=== PATIENT | female | born 1980 | race Caucasian/White ===

== ENCOUNTER 2016-10-31 11:22 | Emergency (ER) | payer BC, MEDICAID ==
[~2016-10-31] VITALS: Ht 160 cm; Wt 74.8 kg
[~2016-10-31 11:22] MED LIST: FERROUS SULFAT325 M2 PO; MIRALAX(PO17 GM/1 PA PO; PERCOCET1 TAB PO; PROZAC 20MG CAP20 MG PO; VALIUM 5MG TABLE5 MG PO
--- OUTSIDE RECORDS SUMMARY | 2016-10-31 11:54 | External Medical Summary Rpt ---
Author Author , Organization [employer] Address Unknown Phone Unavailable Care Team Providers Care Correspondence Analyst Name Role Phone TAYLOR, TAYLOR Unavailable Unavailable TAYLOR ROSARIO, TAYLOR Unavailable Unavailable [facility] Unavailable Unavailable [facility], [facility] PAMELA CATHY, PAMELA CATHY Unavailable Unavailable KATZ, KATZ Unavailable Unavailable [facility], Unavailable Unavailable [facility] Un[facility]available [facility], [facility] Unavailable Unavailable ANESTHESIA, [facility] CHIPPS MARIO & Unavailable Unavailable DUBILIER, [facility] MARIO [facility] DUBILIER [facility], Unavailable Unavailable [facility] CURE KASSIE, CURE KASSIE Unavailable Unavailable JULIANO, JULIANO Unavailable Unavailable COY PAL, COY PAL Unavailable Unavailable JOB ANDERSON, Unavailable Unavailable BIANKA MCCONNELL, Unavailable Unavailable BIANKA CHEEMA CONTRERAS MAR, CONTRERAS MAR Unavailable Unavailable GOUZD ZULEYMA, GOUZD ZULEYMA Unavailable Unavailable GREEN SORIANO, GREEN SORIANO Unavailable Unavailable GREEN SORIANO, GREEN SORIANO Unavailable Unavailable [facility] Un[facility] Un[facility], [facility] WILHELM GINETTE, CHOCO GINETTE Unavailable Unavailable [facility] Un[facility] Un[facility], [facility] Unavailable Unavailable HOLDINGS, [facility] Unavailable Unavailable [facility]INGS, [facility], Unavailable Unavailable [facility], Unavailable Unavailable [facility] Unavailable Unavailable [facility], [facility] Unavailable Unavailable [facility], [facility] Unavailable [facility],, [facility], RIVERA, RIVERA Unavailable Unavailable LYSANDROU VILMA, Unavailable Unavailable LYSANDROU VILMA LYSANDROU VILMA, Unavailable Unavailable [facility] KENN KOLB I, Unavailable Unavailable KENN KOLB, PAUL Garcia, ADELIA, Unavailable Unavailable PAUL Garcia ALDRIDGE JAM, ALDRIDGE Unavailable Unavailable JAM ALDRIDGE JAM, ALDRIDGE Unavailable Unavailable [facility], Un[facility]available [facility], [facility] Unavailable Unavailable LAB, [facility], Unavailable Unavailable [facility] RENUSCH MONICA, RENUSCH Unavailable Unavailable MONICA BRADY KIERSTEN, Unavailable Unavailable BRADY KIERSTEN [facility], Unavailable Unavailable [facility], Unavailable Unavailable [facility], Unavailable Unavailable [facility] Unavailable Unavailable CLIN, [id number], Unavailable Unavailable [id number] # Unavailable Unavailable [id number], [id number] # [phone] ECKERT CHR, ECKERT Unavailable Unavailable CHR Purpose Continuity of Care Document - 04-07-2009 through 2016 Problems Code Diagnosis DOS Provider Status B373 CANDIDIASIS 09-04-2016 DIANE [facility], L292 PRURITUS 09-04-2016 [facility], L298 OTHER 09-04-2016 LAB LO[facility] PRURITUS [facility] N760 ACUTE 09-04-2016 [facility] VAGINITIS [facility], N898 OTHER 09-04-2016 LAB LOI SPECIFIED [facility] NONINFLAMMA HOLDINGS TORY DISORDERS VAGINA R300 DYSURIA 09-04-2016 [facility], R51 HEADACHE 09-04-2016 [facility], S28032 HORMONE 08-24-2016 [facility] REPLACEMENT [facility], POSTMENOPAU AVI K5641 FECAL 05-26-2016 [facility], [facility] K5900 CONSTIPATIO 05-26-2016 [facility] N PHYSICIANS, UNSPECIFIED [facility] K5903 DRUG 05-26-2016 [facility]ST[facility] N N200 CALCULUS OF 05-26-2016 [facility] N736 FEMALE 04-25-2016 DIANE PELVIC [facility] PERITONEAL [facility], ADHESIONS POSTINFECTI VE N800 ENDOMETRIOS 04-25-2016 DIANE IS OF [facility] UTERUS [facility], N803 ENDOMETRIOS 04-25-2016 DIANE IS OF [facility] PELVIC [facility], PERITONEUM N809 ENDOMETRIOS 04-25-2016 [facility] UNSPECIFIED ANESTHESIA N8301 FOLLICULAR 04-25-2016 [facility] CYST OF MARIO & RIGHT OVARY DUBILIER N8302 FOLLICULAR 04-25-2016 [facility]ST [facility] & LEFT OVARY DUBILIER N946 DYSMENORRHE 04-25-2016 [facility] A [facility] UNSPECIFIED ANESTHESIA N72 INFLAMMATOR 04-23-2016 [facility] Y DISEASE HEALTH OF CERVIX [facility] UTERI N921 EXCESS & 04-23-2016 [facility] FREQUENT HEALTH MENSTRUATIO [facility] N W/IRREGULAR CYCLE N939 ABNORMAL 04-23-2016 [facility] UTERINE & HEALTH VAGINAL [facility] BLEEDING UNSPECIFIED V06630 ENCOUNTER 04-23-2016 [facility] FOR OTHER HEALTH PREPROCEDUR [facility] AL EXAMINATION 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 J111 FLU D/T 04-14-2016 [facility], D FLU VIRUS PLLC W/OTH RESP MANIF N920 EXCESS & 04-03-2016 [facility] FREQUENT [facility] MENSTRUATIO [facility]OC[facility], N W/REGULAR CYCLE N9410 UNSPECIFIED 04-03-2016 [facility] DYSPAREUNIA [facility], R102 PELVIC AND 04-03-2016 [facility] PERINEAL [facility] PAIN [facility], D259 LEIOMYOMA 03-15-2016 [facility]AL OF UTERUS EMERGENCY UNSPECIFIED PHYS PSC R109 UNSPECIFIED 03-15-2016 [facility] ABDOMINAL EMERGENCY PAIN PHYS PSC N8320 UNSPECIFIED 12-17-2015 [facility] R1032 LEFT LOWER 12-17-2015 [facility] E042 NONTOXIC 10-26-2015 [facility] MULTINODULA INC R GOITER E079 DISORDER OF 10-22-2015 THREE THYROID [facility] MED UNSPECIFIED CTR E049 NONTOXIC 10-12-2015 THREE GOITER [facility] MED UNSPECIFIED CTR R110 NAUSEA 09-17-2015 [facility] INC R140 ABDOMINAL 09-17-2015 [facility] DISTENSION INC GASEOUS R079 CHEST PAIN 08-02-2015 THREE UNSPECIFIED [facility] MED CTR 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 D649 ANEMIA 04-17-2015 [facility]PECIFIED [facility] Z720 TOBACCO USE 04-17-2015 [facility] 49971 DYSFUNCTION 02-06-2014 [facility] 4619 ACUTE 02-06-2014 THREE SINUSITIS, [place] UNSPECIFIED MEDICAL CLIN 490 BRONCHITIS 02-06-2014 AZEB HERNANDEZ [facility] SPECIFIED MEDICAL ACUTE OR CLIN CHRONIC 7862 COUGH 02-06-2014 AZEB [facility] 56728 UNSPECIFIED 12-16-2013 [facility] INFECTIVE THO OTITIS EXTERNA 71552 UNSPECIFIED 12-16-2013 ST[facility] OTALGIA THO V3000 SINGLE 07-22-2010 [facility] W/O 650 NORMAL 07-20-2010 ALDRID[facility] JAM DELIVERY V270 OUTCOME OF 07-20-2010 ALDR[facility] JAM DELIVERY SINGLE LIVEBORN 29475 ABNORMAL 07-18-2010 ALDR[facility] JAM MATERNAL GLUCOSE TOLERANCE ANTEPARTUM V221 SUPERVISION 07-04-2010 ALDR[facility] JAM OF OTHER NORMAL V2889 OTHER 07-04-2010 [facility] SCREENING V237 INSUFFICIEN 06-27-2010 [facility] MANDEEP T CARE V7242 06-22-2010 [place] OR TEST H D POSITIVE RESULT V7219 OTHER 06-11-2009 P[facility] EXAMINATION [facility] [place] [facility]SC AND HEARING 48916 UNSPEC 06-10-2009 [facility] TL PROB PLLC AFFECT MGMT MOTH DELIV V502 ROUTINE OR 06-10-2009 [facility] CIRCUMCISIO PLLC N 01759 DECR 06-09-2009 [facility] MGMT MOTH PLLC ANTPRTM COND/COMP 43736 INFECTION 05-19-2009 [facility] DUE OTHER [facility] SPEC HOSP BACTERIA CCE & UNS SITE 38483 OTH SPEC 05-19-2009 [facility] MATERNAL [facility] INF&PARASIT HOSP IC DISEASE ANTPRTM V283 ENCOUNTER 04-21-2009 [facility] SCREEN PLLC MALFORMATIO N ULTRASONIC V745 SCREENING 04-15-2009 PATHOLOGY & EXAMINATION CYTOLOGY FOR LAB VENEREAL DISEASE Medications Na ND Rx Da Fi Fi Am Da Di Ph RX Ph St me C No te ll ll ou ys ag ar # ys at rm s nt no ma ic us Or Da si cy ia de te s n re d CL 00 02 03 30 30 00 VA Ac ON 09 0 -1 .0 00 DONNIE ti AZ 30 8- 0- 00 01 E ve EP 83 20 20 49 ME AM 21 17 17 23 D 0 01 IN 0. C 5 MG TA BL ET FL 63 01 02 60 30 00 VA Ac UO 30 -1 -1 .0 00 DONNIE ti XE 40 0- 0- 00 01 E ve TI 63 20 20 47 ME NE 20 17 17 24 D 1 94 IN HC C L 40 MG CA PS UL E CL 00 01 02 60 30 00 VA Ac ON 09 -1 -1 .0 00 DONNIE ti AZ 30 0- 0- 00 01 E ve EP 83 20 20 48 ME AM 21 17 17 22 D 0 86 IN 0. C 5 MG TA BL ET FL 63 12 01 60 30 00 VA Ac UO 30 -0 -1 .0 00 DONNIE ti XE 40 8- 3- 00 01 E ve TI 63 20 20 47 ME NE 20 16 17 24 D 1 94 IN HC C L 40 MG CA PS UL E CL 00 12 01 60 30 00 VA Ac ON 18 -0 -1 .0 00 DONNIE ti AZ 50 8- 3- 00 01 E ve EP 06 20 20 47 ME AM 41 16 17 24 D 1 0 93 IN C MG TA BL ET 00 01 01 0 20 3 WA 36 ON Ac 59 -2 -2 .0 LG 10 EI ti 10 8 8- 00 RE 69 LL ve 74 20 20 EN 90 11 11 S JA 5 #9 ME 85 S 7 E # 98 57 IB 53 01 01 3 20 5 WA 36 ON Ac UP 74 -2 -2 .0 LG 10 EI ti RO 60 8- 8- 00 RE 70 LL ve FE 46 20 20 EN N 50 11 11 S JA 60 5 #9 ME 0 85 S MG 7 E # TA 98 BL 57 ET 00 12 12 00 30 2 WA 28 BA Ac 60 -1 -3 .0 LG 29 IN ti 35 9- 1- 00 RE 93 ve 46 20 20 EN KI 72 09 09 S MB 8 #0 ER 98 LY 57 W IB 53 12 12 00 30 10 WA 28 BA Ac UP 74 -1 -3 .0 LG 29 IN ti RO 60 9- 1- 00 RE 94 ve FE 46 20 20 EN KI N 60 09 09 S MB 80 5 #0 ER 0 98 LY MG 57 W TA BL ET TA 00 11 11 00 10 5 WA 27 DU Ac FL 00 -0 -1 .0 LG 46 NC ti FL 40 9- 9- 00 RE 24 AN ve U 80 20 20 EN 75 08 09 09 S TH 5 #0 OM MG 98 57 J CA PS UL E Results Labs Lab Lab Date Result Refere Interp Status Commen Order Detail nces retati t Range on CBC W Diff pnl,unspecified Bld (04-26-2016 05:21) WBC --2 11.17 3.50-10 complet nRBC 016 10*3/mm .80 ed cor # 05:21 3 Bld RBC # 11-02-2 3.44 3.89-5. complet Bld 016 10*6/mm 14 ed Auto 05:21 3 Hgb 02-2 10.5 11.5-15 complet Bld-mCn 016 g/dL .5 ed c 05:21 Hct VFr 2 31.6 % 34.5-44 complet Bld 016 .0 ed Auto 05:21 MCV RBC 2 91.9 fL 80.0-99 complet Auto 016 .0 ed 05:21 MCH RBC 2 30.5 pg 27.0-31 complet Qn 016 .0 ed Auto 05:21 MCHC 33.2 32.0-36 complet RBC 016 g/dL .0 ed Auto-mC 05:21 nc RDW RBC 04-26-2 13.3 % 11.3-14 complet 016 .5 ed Auto-Rt 05:21 o RDW RBC 04-26-2 43.7 fl 37.0-54 complet Auto 016 .0 ed 05:21 PMV Bld 2 10.0 fL 6.0-12. complet Auto 016 0 ed 05:21 Platele 211 150-450 complet t # Bld 016 10*3/mm ed Auto 05:21 3 Neutrop 65.8 % 41.0-71 complet hils 016 .0 ed NFr Bld 05:21 Auto Lymphoc 04-26-2 24.2 % 24.0-44 complet ytes 016 .0 ed NFr Bld 05:21 Auto Monocyt 04-26-2 9.0 % 0.0-12. complet es NFr 016 0 ed Bld 05:21 Auto Eosinop 04-26-2 0.6 % 0.0-3.0 complet hil NFr 016 ed Bld 05:21 Auto Basophi 2 0.2 % 0.0-1.0 complet ls NFr 016 ed Bld 05:21 Auto Imm 2 0.2 % 0.0-0.6 complet Granulo 016 ed cytes 05:21 NFr Bld Neutrop 04-26-2 7.35 1.50-8. complet hils # 016 10*3/mm 30 ed Bld 05:21 3 Auto Lymphoc --2 2.70 0.60-4. complet ytes # 016 10*3/mm 80 ed Bld 05:21 3 Auto Monocyt 02-2 1.01 0.00-1. complet es # 016 10*3/mm 00 ed Bld 05:21 3 Auto Eosinop 02-2 0.07 0.10-0. complet hil # 016 10*3/mm 30 ed Bld 05:21 3 Auto Basophi 02-2 0.02 0.00-0. complet ls # 016 10*3/mm 20 ed Bld 05:21 3 Auto Imm 04-26-2 0.02 0.00-0. complet Granulo 016 10*3/mm 03 ed cytes # 05:21 3 Bld Bas Metab 2000 Pnl SerPl (04-26-2016 05:21) Comment: National [employer] Guidelines Comment: Comment: Stage Description GFR Comment: 1 Normal or High 90+ Comment: 2 Mild decrease 60-89 Comment: 3 Moderate decrease 30-59 Comment: 4 Severe decrease 15-29 Comment: 5 Kidney failure <15 Glucose 100 70-100 complet 016 mg/dL ed Bld-mCn 05:21 c Chlorid 103 99-109 complet e 016 mmol/L ed SerPl-s 05:21 Cnc CO2 27.0 20.0-31 complet SerPl-s 016 mmol/L .0 ed Cnc 05:21 Calcium 2 8.5 8.7-10. complet 016 mg/dL 4 ed XXX-sCn 05:21 c GFR/BSA 113 >60 complet .pred 016 mL/min/ ed SerPl 05:21 1.73 MDRD-Ar VRat BUN/Cre 20.0 7.0-25. complet at 016 0 ed SerPl 05:21 Anion 04-26-2 4.0 3.0-11. complet Gap3 016 mmol/L 0 ed SerPl-s 05:21 Cnc BUN 04-26-2 12 9-23 complet Bld-mCn 016 mg/dL ed c 05:21 Creat 04-26-2 0.60 0.60-1. complet Bld-mCn 016 mg/dL 30 ed c 05:21 Sodium 04-26-2 134 132-146 complet Bld-sCn 016 mmol/L ed c 05:21 Potassi 04-26-2 3.8 3.5-5.5 complet um 016 mmol/L ed Bld-sCn 05:21 c CBC (hemogram) Bld Auto (04-23-2016 14:12) RBC # 1030-2 4.56 3.89-5. complet Bld 016 10*6/mm 14 ed Auto 14:12 3 WBC 04-23-2 8.61 3.50-10 complet nRBC 016 10*3/mm .80 ed cor # 14:12 3 Bld Hgb 04-23-2 13.8 11.5-15 complet Bld-mCn 016 g/dL .5 ed c 14:12 Hct VFr 04-23- 40.6 % 34.5-44 complet Bld 016 .0 ed Auto 14:12 MCV RBC 04-23- 89.0 fL 80.0-99 complet Auto 016 .0 ed 14:12 MCH RBC 04-23-2 30.3 pg 27.0-31 complet Qn 016 .0 ed Auto 14:12 MCHC 04-23-2 34.0 32.0-36 complet RBC 016 g/dL .0 ed Auto-mC 14:12 nc RDW RBC 04-23-2 13.1 % 11.3-14 complet 016 .5 ed Auto-Rt 14:12 o RDW RBC 04-23-2 41.9 fl 37.0-54 complet Auto 016 .0 ed 14:12 PMV Bld 04-23-2 10.0 fL 6.0-12. complet Auto 016 0 ed 14:12 Platele 04-23-2 299 150-450 complet t # Bld 016 10*3/mm ed Auto 14:12 3 [facility] (04-23-2016 14:12) Comment: HCG Expected Values: Comment: Comment: Non females: ? less than 5 mIU/mL Comment: Comment: Males: ? less than 5 mIU/mL Comment: Comment: females: Comment: 0-1 Weeks Gestation ?5-50 Comment: 1-2 Weeks Gestation ?50-500 Comment: 2-3 Weeks Gestation ?100-5000 Comment: 3-4 Weeks Gestation ?[phone] Comment: 4-5 Weeks Gestation ?[phone] Comment: 5-6 Weeks Gestation ?[phone] Comment: 6-8 Weeks Gestation ?[phone] Comment: 2-3 Months Gestation ? [phone] Comment: Comment: ? Note: ?If a value is between 5-25 mIU/mL recommend Comment: repeat testing and clinical correlation. HGC 10-30-2 < 5.00 complet Intact+ 016 mIU/mL ed B 14:12 SerPl-a Cnc Procedures Procedure DOS [place] [id number] LAB LOI LAB LOI NON-IMMUN 7 [facility] OLOGIC HOLDINGS HOLDINGS OTH/THN CYTOPATHI C IADNA 71504 LAB LOI LAB LOI KENTON 7 [facility] SPECIES HOLDINGS HOLDINGS AMPLIFIED PROBE TQ CULTURE 87874 LAB LOI LAB LOI BACTERIAL 7 [facility] HOLDINGS QUANTTATI VE COLONY COUNT URINE SMR PRIM 27767 DIANE TAYLOR SRC WET 7 [facility] M[facility] ASSOCIATE NFCT AGT S, IADNA NOS 95023 LAB LOI LAB LOI 7 [facility] AMPLIFIED HOLDINGS HOLDINGS PROBE TQ EACH ORGANISM URNLS DIP 06902 DIANE SRKINS 7 [facility] STICK/TAB ASSOCIATE LET S, REAGENT AUTO MICROSCOP Y THER 65304 [facility] PROPH/DX 6 [facility] NJX EA INC INC SEQL IV PUSH SBST/DRUG FAC THERAPEUT 96155 [facility] IC 6 [facility] INJECTION INC INC IV PUSH EACH NEW DRUG THER 24730 [facility] PROPH/DX 6 [facility] NJX IV INC INC PUSH SINGLE/1S T SBST/DRUG RADEX 24893 [facility] ABDOMEN 6 MEDICAL COMPL IMAGING W/DCBTS&/ ASS ERC VIEWS INJECTION J1644 [facility] HEPARIN 6 [facility] SODIUM [facility] PER 1000 UNITS INJECTION J1170 [facility] MUSLIM 6 [facility] HYDROMORP [facility] CESAR UP TO 4 MG INJECTION J0694 [facility] MUSLIM 6 [facility] CEFOXITIN [facility] SODIUM 1 G BASIC 46424 [facility] METABOLIC 6 [facility] PANEL [facility] CALCIUM TOTAL BLOOD 85588 [facility] COUNT 6 [facility] COMPLETE [facility] AUTO&AUTO DIFRNTL WBC INJECTION J2250 [facility] [address] [place] [address] MIDAZOLAM [facility] HCL PER 1 [facility] G0378 [facility] OBSERVATI 6 [facility] ON [facility] SERVICE PER HOUR INJECTION J2550 [facility]LIM 6 [facility] PROMETHAZ [facility] INE HCL UP TO 50 MG INJECTION J2405 [facility] MUSLIM 6 [facility] ONDANSETR [facility] ON HCL PER 1 [place] [address] CHIPPS JULIANO SURG 6 MARIO & PATHOLOGY TANMAY [facility] ROSCOPIC EXAM ANESTHESI 10990 [facility] GOUZD ZULEYMA A 6 [facility] INTRAPERI ANESTHESI TONEAL A LOWER ABD W/LAPS NOS LAPS 94956 TROY TAYLOR TOTAL 6 [facility] ROSARIO HYSTERECT ASSOCIATE 250 GM/< S, W/RMVL TUBE/OVAR Y INJECTION J0694 [facility] [address] [place] [address] CEFOXITIN [facility] SODIUM 1 G INJECTION J3010 [facility] FENTANYL 6 [facility] CITRATE [facility] 0.1 MG INJECTION J2710 [facility] [address] [place] [address] NEOSTIGMI [facility] NE METHYLSUL FATE UP TO 0.5 MG INJECTION J2704 [facility] PROPOFOL 6 [facility]1170 [facility] MUSLIM 6 [facility] HYDROMORP [facility] CESAR UP TO 4 MG INJECTION J1100 [facility] MUSLIM 6 [facility] DEXAMETHO [facility] SONE SODIUM PHOSPHATE 1 MG ANTIBODY 82958 [facility] ID RBC 6 [facility] ANTIBODIE [facility] S EA PANEL EA SERUM TQ GONADOTRO 12516 [facility] PIN 6 [facility] CHORIONIC [facility] QUANTITAT BORA COMPATIBI 56856 [facility] LITY EACH 6 [facility] UNIT [facility] ANTIGLOBU BILL COMPATIBI 00858 [facility] LITY EACH 6 [facility] UNIT [facility] IMMEDIATE SPIN TECHNIQUE BLOOD 01605 [facility] COUNT 6 [facility] COMPLETE [facility] AUTOMATED BLOOD 39567 [facility] TYPING 6 [facility] SEROLOGIC [facility] RH (D) ANTIBODY 58954 [facility] SCREEN 6 [facility] RBC EACH [facility] SERUM TECHNIQUE COLLECTIO 80927 [facility] N VENOUS 6 [facility]ALTH HEALTH BLOOD [facility] VENIPUNCT URE BLOOD 26518 [facility] TYPING 6 [facility] SEROLOGIC [facility] ABO COMPREHEN 86993 [facility] SIVE [facility] METABOLIC [facility] PANEL BLOOD 38915 [facility] COUNT 6 [facility] COMPLETE [facility] AUTO&AUTO DIFRNTL WBC URNLS DIP 79735 [facility] MUSLIM 6 [facility] HE[facility] STICK/TAB [facility] LET REAGENT AUTO MICROSCOP Y US PELVIC 69614 [facility] CONTRERAS MAR 6 RADIOLOGY NONOBSTET ASSOC VIJAY REAL-TIME IMAGE COMPLETE INJECTION J1885 [facility] MUSLIM 6 [facility] KETOROLAC [facility] TROMETHAM INE PER 15 MG URINE 74208 [facility] MUSLIM 6 [facility] TEST [facility] [place] [address] [facility] LIPASE 6 [facility] THER 75219 MUSLIM [facility] PROPH/DX 6 [facility] NJX IV [facility] PUSH SINGLE/1S T SBST/[place] [address] [facility] CONTRERAS MAR TRANSVAGI [address] [place] [address] [facility] ABDOMEN & 6 [facility] PELVIS INC INC W/O CONTRAST MATERIAL THERAPEUT 75943 [facility] IC 6 [facility] INJECTION INC INC IV PUSH EACH NEW DRUG BLOOD 03573 [facility] COUNT 6 [facility] COMPLETE INC INC AUTO&AUTO DIFRNTL WBC URNLS DIP 64227 [facility]GG 6 [facility] STICK/TAB INC [place] [address] [facility] INFUSION 6 [facility] THERAPY/P INC INC ROPHYLAXI S /DX 1ST TO 1 HR UNCLASSIF J3490 [facility] IED DRUGS 6 [facility] INC INC COMPREHEN 17922 [facility] SIVE 6 [facility] METABOLIC INC INC PANEL INJECTION J2405 VALDEZPEDRO PABLO KELLOGG 6 [facility]OS[facility] ONDANSETR INC INC ON HCL PER 1 MG US PELVIC 21027 RADIOLOGY DRANSFELD 6 INC [facility] NONOBSTET VIJAY REAL-TIME IMAGE COMPLETE US SOFT 51599 RADIOLOGY DRANSFELD TISSUE 6 INC [facility]ICA HEAD & NECK REAL TIME IMGE DOCM THYROID 00113 THREE THREE STIMULATI 6 MA MA NG IMMUNE MED CTR MED CTR GLOBULINS TSI MICROSOMA 60136 THREE THREE L 6 ANTIBODIE MED CTR MED CTR S EACH BLOOD 15978 THREE THREE COUNT [address] [place] [address] THREE THREE TRIIODOTH 6 MA MA YRONINE [place] [address] THREE THREE THYROID 6 STIMULATI [place] [address] THREE THREE FREE 6 [facility] MA THYROXINE MED CTR MED CTR ANES 29166 THREE ECKERT HYSTEROSC 6 [facility] CHR OPY&/HYST MEDICAL EROSALPIN CLIN GOGRAPHY W/BX INJECTION J2405 THREE THREE 6 [facility] ONDANSETR MED CTR MED CTR ON HCL PER 1 MG INJECTION J3010 THREE THREE FENTANYL 6 [facility] CITRATE MED CTR MED CTR 0.1 MG INJECTION J2704 THREE THREE PROPOFOL 6 [facility] MA 10 MG MED CTR MED CTR INFUSION J7030 THREE THREE NORMAL 6 [facility] SALINE MED CTR MED CTR SOLUTION 1000 CC UNCLASSIF J3490 THREE THREE IED DRUGS 6 [facility] MA MED CTR MED CTR INJECTION J2250 THREE THREE 6 [facility] MA MIDAZOLAM MED CTR MED CTR HCL PER 1 MG GONADOTRO 40681 THREE THREE PIN 6 [facility] CHORIONIC MED CTR MED CTR QUALITATI VE HYSTEROSC 42543 THREE COY PAL OPY 6 [facility] ENDOMETRI MEDICAL AL CLIN ABLATION PERM IMPL A4264 THREE THREE 6 MA [facility] CONTRACEP MED CTR MED CTR TIVE TUBAL OCCL DEV & DEL SYS RINGERS J7120 THREE THREE LACTATE 6 [facility] INFUSION MED CTR MED CTR UP TO 1000 CC RADEX 62477 THREE THREE ABDOMEN 1 6 [facility] MED [place] [address] [facility]OLOGY [facility] ABDOMEN & 6 INC PELVIS W/[place] [address] [facility], [address] PATHOLOGY [facility] ROSCOPIC EXAM ENDOMETRI 90744 THREE COY PAL AL BX 6 MA W/WO MEDICAL ENDOCERVI CLIN X BX W/[place] [address] THREE THREE TROPONIN 6 [facility] QUANTITAT MED CTR MED CTR BORA BLOOD 90286 THREE THREE COUNT 6 [facility] COMPLETE [place] [address] THREE THREE MAGNESIUM 6 [facility] MED CTR MED CTR CREATINE 27878 THREE THREE KINASE 6 [facility] TOTAL MED CTR MED CTR SEDIMENTA 77342 THREE THREE TION RATE 6 [facility] RBC MED CTR MED CTR NON-AUTOM ATED CREATINE 10826 THREE THREE KINASE MB 6 MA MA FRACTION MED CTR MED CTR ONLY COMPREHEN 55933 THREE THREE SIVE 6 [place] METABOLIC MED CTR MED CTR PANEL C-REACTIV 52266 THREE COMPLIANC E PROTEIN 6 MA E MED CTR ADVANTAGE OPHTH 97888 LYSANDROU LYSANDROU MEDICAL 6 VILMA VILMA XM&EVAL COMPRE NEW PT 1/> VST US SOFT 54116 RADIOLOGY CURE KASSIE TISSUE 5 INC HEAD & NECK REAL TIME IMGE DOCM THYROGLOB 42360 THREE THREE ULIN 5 MA [place] [address] THREE THREE TRIIODOTH 5 [facility] YRONINE MED [place] [address] THREE THREE THYROID 5 [facility] STIMULATI MED [place] [address] THREE THREE FREE 5 [facility] THYROXINE MED CTR MED CTR LOCM Q9967 CENTRAL CENTRAL [phone] 5 MUSLIM MUSLIM MG/ML HOSP HOSP IODINE CONCENTRA TION PER ML INJECTION J2405 CENTRAL CENTRAL 5 [facility] MUSLIM ONDANSETR HOSP HOSP [place] [address] [place] [address] CENTRAL CENTRAL ANGIOGRAP 5 [facility]LIM HY CHEST [facility]OSP HOSP W/[place] [address] CENTRAL CENTRAL AMYLASE 5 [facility]LIM MUSLIM HOSP HOSP COMPREHEN 36092 CENTRAL CENTRAL SIVE 5 [facility]LIM [facility] METABOLIC HOSP HOSP PANEL BLOOD 54556 CENTRAL CENTRAL COUNT 5 MUSLIM MUSLIM COMPLETE HOSP HOSP AUTO&[place] [address] CENTRAL CENTRAL TROPONIN 5 MUSLIM MUSLIM QUANTITAT HOSP HOSP BORA NATRIURET 01241 CENTRAL CENTRAL IC 5 MUSLIM MUSLIM PEPTIDE HOSP HOSP THERAPEUT 01615 CENTRAL CENTRAL IC 5 MUSLIM MUSLIM INJECTION HOSP HOSP IV PUSH EACH NEW DRUG RADIOLOGI 82651 CENTRAL CENTRAL C 5 MUSLIM MUSLIM EXAMINATI HOSP HOSP ON CHEST SINGLE VIEW FRONTAL THROMBOPL 29751 CENTRAL CENTRAL ASTIN 5 MUSLIM MUSLIM TIME HOSP HOSP PARTIAL PLASMA/WH OLE BLOOD URINE 89826 CENTRAL CENTRAL 5 [facility]LIM MUSLIM TEST HOSP HOSP VISUAL COLOR CMPRSN METHS ECG 77016 CENTRAL CENTRAL ROUTINE 5 MUSLIM MUSLIM ECG HOSP HOSP W/LEAST 12 LDS TRCG ONLY W/O I&R INJECTION J1170 CENTRAL CENTRAL 5 MUSLIM MUSLIM HYDROMORP HOSP HOSP CESAR UP TO 4 MG PROTHROMB 43872 [facility] IN TIME 5 [facility] FIBRIN 58854 [facility] DGRADJ 5 [facility] PRODUCTS [facility]OSP HOSP [place] [address] CEN[facility] LIPASE 5 [facility]P THER 90944 [facility] PROPH/DX 5 [facility] NJX IV HOSP HOSP PUSH SINGLE/1S T SBST/DRUG INJECTION J1100 [facility] 4 [facility] DEXAMETHO MEDICAL SONE CLIN SODIUM PHOSPHATE 1 MG THERAPEUT 82145 [facility]/DX CLIN INJECTION SUBQ/IM INJECTION J2010 THREE STICKLER 4 [facility] LINCOMYCI MEDICAL N HCL UP CLIN TO 300 [facility] 66762 GREEN SORIAN[facility] GREEN [facility]IAN[facility] DISCHARGE 1 DAY MANAGEMEN T 30 MIN/< 1ST 09154 GREEN SORIANO GREEN [facility]ORIAN[facility] HOSP/LEXY 1 [facility] CARE PER DAY NML NB VAGINAL 91125 ALDRIDGE ALDRIDGE DELIVERY 1 JAM JAM ONLY W/POSTPAR CONCETTA CARE CUL 89547 [facility] PRSMPTV 1 [employer] (PICA) [facility] PTHGNC ORGANISM SCRN W/COLONY ESTIMJ IADNA 62221 [facility] CHLAMYDIA 1 [place] [employer] [facility] TRACHOMAT IS AMPLIFIED PROBE TQ IADNA 80589 [facility] [place]AP[place] 1 [facility] VIRUS HUMAN AMPLIFIED PROBE TQ CYTP C/V 28710 [facility] OF AUTO THIN 1 [place] [facility] [place] [facility] LYR PREPJ SCR MNL RESCR PHYS US PREG 58455 ALDRIDGE ALDRIDGE UTERUS 1 JAM JAM AFTER 1ST TRIMEST GESTATION IADNA 92351 [facility] NEISSERIA 1 [place] INC GONORRHOE AE AMPLIFIED PROBE TQ URINE 87215 [facility] 0 [place] TEST CO H D CO H D VISUAL COLOR CMPRSN METHS AUDITORY 78191 PEDIATRIX ADELIA, EVOKED 9 MEDICAL PAUL G POTENTIAL [facility] [place] S LIMITED PSC CIRCUMCIS 12276 WOMENLexie CHEEMA ION 9 [facility] W/CLAMP/O CENTER TH DEV PLLC W/BLOCK VAGINAL 71319 WOMENLexie CHEEMA, DELIVERY 9 [facility]ARE [facility] ONLY CENTER W/POSTPAR PLLC CONCETTA CARE 43342 WOMENLexie CHEEMA, NONSTRESS 9 [facility] TEST CENTER PLLC 88778 MIREYA CORTES BIOPHYSIC 9 CARE [facility] I AL CENTER PROFILE PLLC NON-STRES S TESTING CUL 64423 CENTRAL CENTRAL PRSMPTV 9 [facility] PTHGNC HOSP HOSP ORGANISM SCRN W/COLONY ESTIMJ US PREG 08136 MIREYA KOLB, UTERUS 9 CARE [facility] I AFTER 1ST CENTER TRIMEST PLLC GESTATION 3D 91389 MIREYA KOLB, RENDERING 9 CARE [facility] I CENTER W/INTERP& PLLC POSTPROC DIFF WORK STATION IADNA 77880 PATHOLOGY PATHOLOGY NEISSERIA 9 & & CYTOLOGY CYTOLOGY GONORRHOE LAB LAB AE AMPLIFIED PROBE TQ IADNA 60983 PATHOLOGY PATHOLOGY CHLAMYDIA 9 & & CYTOLOGY CYTOLOGY TRACHOMAT LAB LAB IS AMPLIFIED PROBE TQ CYTP C/V 19487 PATHOLOGY PATHOLOGY AUTO THIN 9 & & LYR CYTOLOGY CYTOLOGY PREPJ SCR LAB LAB MNL RESCR PHYS URINE 68473 DHS/CO TROY 9 [facility] [place] TEST CENTRAL CO H D VISUAL BANK ACCT COLOR CMPRSN METHS Encounters Encounter Start End Date Code Location Performer Type Date OFFICE 47866 [place] [facility] OUTPATIEN 7 7 FUND RAISER T VISIT ASSOCIATE 15 S, MINUTES OFFICE 91523 DIANE SRKINS OUTPATIEN 7 7 FUND RAISER T VISIT ASSOCIATE 15 S, MINUTES EMERGENCY 42158 [facility] 6 [address] [facility] T VISIT HIGH/URGE NT SEVERITY [facility]OSPITAL [facility] - 6 6 [facility] EMERGENCY 81140 [facility] 6 6 PHYSICIAN [place] VISIT [facility] HIGH [facility]VERITY& THREAT [facility] - 6 6 [facility] - 6 6 [facility] EMERGENCY 89490 EVELINA WIL[facility]LM [facility] 6 6 PHYSICIAN DEPART[facility] VISIT MODERATE SEVERITY EMERGENCY 45081 [facility] 6 6 [facility] VISIT LIMITED/M INOR PROB OFFICE 13627 [facility] FUND RAISER ROSARIO T NEW 45 ASSOCIATE MINUTES S, HOSPITAL [facility] - 6 6 [facility] EM[facility]GENC[facility] 22034 [facility] 6 6 [facility] VISIT HIGH/URGE NT SEVERITY EMERGENCY 22100 [facility] DEPT 6 6 EMERGENCY [facility] VISIT PHYS PSC HIGH SEVERITY& THREAT FUNJ EMERGENCY 67444 [facility] 6 6 [facility] VISIT HIGH/URGE NT SEVERITY [facility]OSPITAL [facility] - 6 6 [facility] - OTHER 6 6 [facility] THREE - OTHER 6 6 [facility] THREE - 6 6 [facility] THREE - 6 6 [place] OUTPATIEN [facility] T OFFICE 05603 THREE [place] OUTPATIEN 6 6 MA T NEW 45 MEDICAL MINUTES CLIN HOSPITAL THREE - OTHER 6 6 [facility] THREE - 5 5 [facility] THREE - OTHER 5 5 [facility] CENTRAL - 5 5 [facility] OUTPATIEN HOSP T EMERGENCY 24674 [facility] 5 5 [facility] HIGH/URGE NT SEVERITY OFFICE 18855 THREE STICKLER OUTPATIEN 4 4 MA THO T VISIT MEDICAL 25 CLIN MINUTES OFFICE 93381 STICKLER STICKLER OUTPATIEN 4 4 THO THO T NEW 30 MINUTES OFFICE 80601 ALDRIDGE ALDRIDGE OUTPATIEN 1 1 JAM JAM T VISIT 15 MINUTES OFFICE 74569 ALDR[facility] ALDRIDGE OUTPATIEN 1 1 JAM JAM T VISIT 15 MINUTES OFFICE 96362 AL[facility] ALDRIDGE OUTPATIEN 1 1 JAM JAM T VISIT 15 MINUTES OFFICE 24388 ALDR[facility]GE ALDRIDGE OUTPATIEN 1 1 JAM JAM T NEW 45 MINUTES OFFICE 61488 [facility] OUTPATIEN 0 0 YAIR MAZARIEGOS T VISIT CO H D CO H D 25 MINUTES OFFICE 04437 CAROLEE ECHEVERRIA 9 9 [facility] T VISIT CENTER 15 PLLC MINUTES OFFICE 33542 CAROLEE ECHEVERIRA 9 9 [facility] V[facility] CENTER 15 PLLC MINUTES OFFICE 89772 CAROLEE ECHEVERRIA 9 9 [facility] T VISIT CENTER 15 PLLC MINUTES [facility] CENTRAL - 9 9 [facility] OUTPATIEN HOSP T OFFICE 70059 MIREYA CAROLEE CHEEMA 9 9 [facility] [place] [facility] 15 [facility] MINUTES OFFICE 04759 MIREYA CHEEMACAROLEE 9 9 [facility] [place] [facility] 15 PLL MINUT[facility] CENTRAL - 9 9 [facility] OFF[facility] 68602 MIREYA CHEEMACAROLEE 9 9 CARE [facility] Eddy NEW 45 CENTER MINUTES [facility] OFFICE 11036 [facility] 9 [facility]ALTH Y[facility]IR [place] [facility] 45 CENTRAL CO H D MINUT[facility]
--- OUTSIDE RECORDS SUMMARY | 2016-10-31 11:54 | External Medical Summary Rpt ---
Author Author , Organization [employer] Address Unknown Phone Unavailable Care Team Providers Care Custom Stock Maker Name Role Phone TAYLOR, TAYLOR Unavailable Unavailable TAYLOR ROSARIO, TAYLOR Unavailable Unavailable [facility] Unavailable Unavailable [facility], [facility] PAMELA CATHY, PAMELA CATHY Unavailable Unavailable KATZ, KATZ Unavailable Unavailable [facility], Unavailable Unavailable [facility] Unavailable Unavailable PH[facility], [facility] Unavailable Unavailable ANESTHESIA, [facility] [place] [facility] CHIPPS MARIO & Unavailable Unavailable DUBILIER, CHIPPS MAROI & DUBILIER COMPLIANCE [employer], Unavailable Unavailable COMPLIANCE [...] INC WILHELM GINETTE, CHOCO GINETTE Unavailable Unavailable [facility] Unavailable Unavailable IM[facility]ING [facility], [facility] LAB LOI GHADA Unavailable [...] D, [place] [facility] [place] [facility]UMAN RESOURCES COMPLIANCE MANAGER Unavailable Unavailable ASSOCIATES,, [facility] HUMAN RES[facility] COMPLIANCE MANA[facility], RIVERA, RIVERA Unavailable Unavailable LYSANDROU VILMA, [...] STICKLER THO, Unavailable Unavailable [facility], Unavailable Unavailable [facility] Unavailable Unavailable [facility], [id number], Unavailable Unavailable [id number] # Unavailable Unavailable 9857, [id number] # [phone] ECKERT CHR, ECKERT Unavailable Unavailable CHR Purpose Continuity of Care Document - 04-07-2009 through 2016 Problems Code Diagnosis DOS Provider Status B373 CANDIDIASIS 09-04-2016 DIANE OF [facility] HUMAN RESOURCES COMPLIANCE MANAGER AND VAGINA ASSOCIATES, L292 PRURITUS 09-04-2016 [facility] VULVAE HUMAN RESOURCES COMPLIANCE MANAGER [facility]OCIATES, L298 OTHER 09-04-2016 LAB LOI PRURITUS GHADA HOLDINGS N760 ACUTE 09-04-2016 [facility] VAGINITIS HUMAN RESOURCES COMPLIANCE MANAGER ASSOCIATES, N898 OTHER 09-04-2016 LAB LOI SPECIFIED GHADA NONINFLAMMA HOLDINGS TORY DISORDERS VAGINA R300 DYSURIA 09-04-2016 [facility] HUMAN RESOURCES COMPLIANCE MANAGER [facility], R51 HEADACHE 09-04-2016 [facility] HUMAN RESOURCES COMPLIANCE MANAGER [facility]OC[facility], [id number] HORMONE 08-24-2016 [facility] REPLACEMENT HUMAN RESOURCES COMPLIANCE MANAGER THERAPY ASSOCIATES, POSTMENOPAU AVI K5641 FECAL 05-26-2016 EVELINA IMPACTION PHYSICIANS, [facility] K5900 CONSTIPATIO 05-26-2016 EVELINA N PHYSICIANS, UNSPECIFIED [facility] K5903 DRUG 05-26-2016 VAL[facility]Z INDUCED [facility] CONSTIPATIO INC N N200 CALCULUS OF 05-26-2016 [facility] N736 FEMALE 04-25-2016 DIANE PELVIC HUMAN RESOURCES COMPLIANCE MANAGER PERITONEAL ASSOCIATES, ADHESIONS POSTINFECTI VE N800 ENDOMETRIOS 04-25-2016 DIANE IS OF HUMAN RESOURCES COMPLIANCE MANAGER UTERUS ASSOCIATES, N803 ENDOMETRIOS 04-25-2016 DIANE IS OF HUMAN RESOURCES COMPLIANCE MANAGER PELVIC ASSOCIATES, PERITONEUM N809 ENDOMETRIOS 04-25-2016 [facility] IS [place] UNSPECIFIED ANESTHESIA N8301 FOLLICULAR 04-25-2016 CHIPPS CYST OF MARIO & RIGHT OVARY DUBILIER N8302 FOLLICULAR 04-25-2016 CHIPPS CYST OF MARIO & LEFT OVARY DUBILIER N946 DYSMENORRHE 04-25-2016 [facility] A [place] UNSPECIFIED ANESTHESIA N72 INFLAMMATOR 04-23-2016 [facility] Y DISEASE HEALTH OF CERVIX [place] UTERI N921 EXCESS & 04-23-2016 [facility] FREQUENT HEALTH MENSTRUATIO [facility] N W/IRREGULAR CYCLE N939 ABNORMAL 04-23-2016 [facility] UTERINE & HEALTH VAGINAL [place] BLEEDING UNSPECIFIED [id number] ENCOUNTER 04-23-2016 [facility] FOR OTHER HEALTH PREPROCEDUR [place] AL EXAMINATION N60330 PERSONAL 04-23-2016 [facility] HISTORY OF HEALTH NICOTINE [facility] DEPENDENCE J111 FLU D/T 04-14-2016 [facility] PHYS[facility], D FLU VIRUS PLLC W/OTH RESP MANIF N920 EXCESS & 04-03-2016 [facility] FREQUENT HUMAN RESOURCES COMPLIANCE MANAGER MENSTRUATIO ASSOCIATES, N W/REGULAR CYCLE N9410 UNSPECIFIED 04-03-2016 [facility] HUMAN RESOURCES COMPLIANCE MANAGER DYSPAREUNIA ASSOCIATES, R102 PELVIC AND 04-03-2016 [facility] PERINEAL HUMAN RESOURCES COMPLIANCE MANAGER PAIN ASSOCIATES, D259 LEIOMYOMA 03-15-2016 CENTRAL OF [facility]TERUS EMERGENCY UNSPECIFIED PHYS PSC R109 UNSPECIFIED 03-15-2016 CEN[facility]AL ABDOMINAL EMERGENCY PAIN PHYS PSC N8320 UNSPECIFIED 12-17-2015 [facility] CY[facility] R1032 LEFT LOWER 12-17-2015 [facility] E042 NONTOXIC 10-26-2015 RADIOLOGY MULTINODULA INC R GOITER E079 DISORDER OF 10-22-2015 THREE THYROID [facility] MED UNSPECIFIED CTR E049 NONTOXIC 10-12-2015 THREE GOITER [place] MED UNSPECIFIED CTR R110 NAUSEA 09-17-2015 RADIOLOGY INC R140 ABDOMINAL 09-17-2015 RADIOLOGY DISTENSION INC GASEOUS R079 CHEST PAIN 08-02-2015 THREE UNSPECIFIED MA MED CTR 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 D649 ANEMIA 04-17-2015 CENTRAL UNSPECIFIED [facility] Z720 TOBACCO USE 04-17-2015 [facility]AL [facility] 11178 DYSFUNCTION 02-06-2014 THREE OF [facility] 4619 ACUTE 02-06-2014 THREE SINUSITIS, [place] UNSPECIFIED MEDICAL CLIN 490 BRONCHITIS 02-06-2014 AZEB HERNANDEZ MA SPECIFIED MEDICAL ACUTE OR CLIN CHRONIC 7862 COUGH 02-06-2014 [facility]ZE[facility] 95435 UNSPECIFIED 12-16-2013 ST[facility] INFECTIVE THO OTITIS EXTERNA 37000 UNSPECIFIED 12-16-2013 STICKLER OTALGIA THO V3000 SINGLE 07-22-2010 [facility] W/O 650 NORMAL 07-20-2010 ALDRIDGE JAM DELIVERY V270 OUTCOME OF 07-20-2010 ALDR[facility]GE JAM DELIVERY SINGLE LIVEBORN 59426 ABNORMAL 07-18-2010 AL[facility] JAM MATERNAL GLUCOSE TOLERANCE ANTEPARTUM V221 SUPERVISION 07-04-2010 ALDR[facility]GE JAM OF OTHER NORMAL V2889 OTHER 07-04-2010 LABONE OF SPECIFIED [place] INC SCREENING V237 INSUFFICIEN 06-27-2010 ALDR[facility]GE MANDEEP T CARE V7242 06-22-2010 [place] EXAMINATION [place] OR TEST H D POSITIVE RESULT V7219 OTHER 06-11-2009 P[facility]X EXAMINATION MED[facility] GR[facility] [place] PSC AND HEARING 07652 UNSPEC 06-10-2009 [facility] TL PROB PLLC AFFECT MGMT MOTH DELIV V502 ROUTINE OR 06-10-2009 [facility] CIRCUMCISIO PLLC N 49480 DECR 06-09-2009 [facility] MGMT MOTH PLLC ANTPRTM COND/COMP 91078 INFECTION 05-19-2009 [facility]AL DUE OTHER [facility] SPEC HOSP BACTERIA CCE & UNS SITE OTH SPEC 05-19-2009 C[facility]TRAL MATERNAL [facility] INF&PARASIT HOSP IC DISEASE ANTPRTM V283 ENCOUNTER [...] 00 10 5 WA 27 DU Ac NC 00 -0 -1 .0 LG 46 NC [...] 016 10*3/mm ed Auto 14:12 3 B-HCG [facility] (04-23-2016 14:12) Comment: HCG Expected Values: Comment: Comment: Non females: ? less than 5 mIU/mL Comment: Comment: Males: ? less than 5 mIU/mL Comment: Comment: females: Comment: 0-1 Weeks Gestation ?5-50 Comment: 1-2 Weeks Gestation ?50-500 Comment: 2-3 Weeks Gestation ?100-5000 Comment: 3-4 Weeks Gestation ?[phone] Comment: 4-5 Weeks Gestation ?[phone] Comment: 5-6 Weeks Gestation ?[phone] Comment: 6-8 Weeks Gestation ?[phone] Comment: 2-3 Months Gestation ? [phone] Comment: Comment: ? Note: ?If a value is between 5-25 mIU/mL recommend Comment: repeat testing and clinical correlation. HGC 10-30-2 < 5.00 complet Intact+ 016 mIU/mL ed B 14:12 SerPl-a Cnc Procedures Procedure DOS [place] [id number] LAB LOI LAB LOI NON-IMMUN 7 GHADA GHADA OLOGIC HOLDINGS HOLDINGS OTH/THN CYTOPATHI C IADNA 35454 LAB LOI LAB LOI KENTON 7 GHADA GHADA SPECIES HOLDINGS HOLDINGS AMPLIFIED PROBE TQ CULTURE 04201 LAB LOI LAB LOI BACTERIAL 7 GHADA GHADA HOLDINGS HOLDINGS QUANTTATI VE COLONY COUNT URINE SMR PRIM 71987 DIANE TAYLOR SRC WET 7 HUMAN RESOURCES COMPLIANCE MANAGER MOUNT ASSOCIATE NFCT AGT S, IADNA NOS 42636 LAB LOI LAB LOI 7 GHADA GHADA AMPLIFIED HOLDINGS HOLDINGS PROBE TQ EACH ORGANISM URNLS DIP 69254 DIANE SRKINS 7 HUMAN RESOURCES COMPLIANCE MANAGER STICK/TAB ASSOCIATE LET S, REAGENT AUTO MICROSCOP Y THER 06261 VAL[facility]Z KELLOGG PROPH/DX 6 [facility] NJX EA INC INC SEQL IV PUSH SBST/DRUG FAC THERAPEUT 57266 VALDEZ KELLOGG IC 6 [facility] INJECTION INC INC IV PUSH EACH NEW DRUG THER 19424 VALDEZ KELLOGG PROPH/DX 6 [facility] NJX IV INC INC PUSH SINGLE/1S T SBST/DRUG RADEX 96501 [facility] KATZ ABDOMEN 6 MEDICAL COMPL IMAGING W/DCBTS&/ ASS ERC VIEWS INJECTION J1644 RA[facility]I RASTAFARI HEPARIN 6 [facility] SODIUM [facility] PER 1000 UNITS INJECTION J1170 RASTAFARI RASTAFARI 6 [facility] HYDROMORP [facility] CESAR UP TO 4 MG INJECTION J0694 RASTAFARI RASTAFARI 6 [facility] CEFOXITIN [facility] SODIUM 1 G BASIC 39280 RA[facility]I RASTAFARI METABOLIC 6 [facility] PANEL [facility] CALCIUM TOTAL BLOOD 41751 RASTAFARI RASTAFARI COUNT 6 [facility] COMPLETE [facility] AUTO&AUTO DIFRNTL WBC INJECTION J2250 RASTAFARI RASTAFARI [address] [place] [address] MIDAZOLAM [facility] HCL PER 1 [facility] G0378 RA[facility]AFARI RASTAFARI OBSERVATI 6 [facility] ON [facility] SERVICE PER HOUR INJECTION J2550 RASTAFARI RASTAFARI 6 [facility] PROMETHAZ [facility] INE HCL UP TO 50 MG INJECTION J2405 RASTAFARI RASTAFARI 6 [facility] ONDANSETR [facility] ON HCL PER 1 [place] [address] CHIPPS JULIANO SURG 6 MARIO & PATHOLOGY TANMAY GROSS&BARRINGTON ROSCOPIC EXAM ANESTHESI 34467 CENTRAL GOUZD ZULEYMA A 6 [facility] INTRAPERI ANESTHESI TONEAL A LOWER ABD W/LAPS NOS LAPS 86436 [facility] TAYLOR TOTAL 6 HUMAN RESOURCES COMPLIANCE MANAGER ROSARIO HYSTERECT ASSOCIATE 250 GM/< S, W/RMVL TUBE/OVAR Y INJECTION J0694 RASTAFARI RASTAFARI [address] [place] [address] CEFOXITIN [facility] SODIUM 1 G INJECTION J3010 RASTAFARI RASTAFARI FENTANYL 6 [facility] CITRATE [facility] 0.1 MG INJECTION J2710 RASTAFARI RASTAFARI [address] [place] [address] NEOSTIGMI [facility] NE METHYLSUL FATE UP TO 0.5 MG INJECTION J2704 RASTAFARI RASTAFARI PROPOFOL 6 [facility] 10 [facility] INJECTION J1170 [facility]I RASTAFARI 6 [facility] HYDROMORP [facility] CESAR UP TO 4 MG INJECTION J1100 RA[facility]AFARI RASTAFARI 6 [facility] DEXAMETHO [facility] SONE SODIUM PHOSPHATE 1 MG ANTIBODY 44960 RA[facility]I RASTAFARI ID RBC 6 [facility] ANTIBODIE [facility] S EA PANEL EA SERUM TQ GONADOTRO 32113 RA[facility]AFARI RASTAFARI PIN 6 [facility] CHORIONIC [facility] QUANTITAT BORA COMPATIBI 59889 RASTAFARI RASTAFARI LITY EACH 6 [facility] UNIT [facility] ANTIGLOBU BILL COMPATIBI 12496 RA[facility]AF[facility]I RASTAFARI LITY EACH 6 [facility] UNIT [facility] IMMEDIATE SPIN TECHNIQUE BLOOD 81525 RASTAFARI RASTAFARI COUNT 6 [facility] COMPLETE [facility] AUTOMATED BLOOD 06513 RA[facility]AFARI RASTAFARI TYPING 6 [facility] SEROLOGIC [facility] RH (D) ANTIBODY 57912 RASTAFARI RASTAFARI SCREEN 6 [facility] RBC EACH [facility] SERUM TECHNIQUE COLLECTIO 56175 RA[facility]AF[facility]I RASTAFARI N VENOUS 6 [facility]ALTH [facility]ALTH BLOOD [facility] VENIPUNCT URE BLOOD 05562 RA[facility]I RASTAFARI TYPING 6 [facility] SEROLOGIC [facility] ABO COMPREHEN 67169 RASTAFARI RASTAFARI SIVE [facility]ALTH HEALTH METABOLIC [facility] PANEL BLOOD 97036 RASTAFARI RASTAFARI COUNT 6 [facility] COMPLETE [facility] AUTO&AUTO DIFRNTL WBC URNLS DIP 02519 RA[facility]AF[facility]I RASTAFARI 6 [facility]ALTH HEALTH STICK/TAB [facility] LET REAGENT AUTO MICROSCOP Y US PELVIC 58314 C[facility]TRAL CONTRERAS MAR 6 RADIOLOGY NONOBSTET ASSOC VIJAY REAL-TIME IMAGE COMPLETE INJECTION J1885 RASTAFARI RASTAFARI 6 [facility] KETOROLAC [facility] TROMETHAM INE PER 15 MG URINE 23772 RASTAFARI RASTAFARI 6 [facility] TEST [facility] [place]UAL [place] [address] RASTAFARI RASTAFARI LIPASE 6 [facility] THER 14027 RASTAFARI RASTAFARI PROPH/DX 6 [facility] NJX IV [facility] PUSH SINGLE/1S T SBST/[place] [address] CENTRAL CONTRERAS MAR TRANSVAGI [address] [place] [address] VALDEZ KELLOGG ABDOMEN & 6 [facility] PELVIS INC INC W/O CONTRAST MATERIAL THERAPEUT 48515 VALDEZ VALDEZ IC 6 [facility] INJECTION INC INC IV PUSH EACH NEW DRUG BLOOD 86912 VALDEZ KELLOGG COUNT 6 [facility] COMPLETE INC INC AUTO&AUTO DIFRNTL WBC URNLS DIP 79478 VAL[facility] KELLOGG 6 [facility] STICK/TAB INC [place] [address] VAL[facility]Z KELLOGG INFUSION 6 [facility] THERAPY/P INC INC ROPHYLAXI S /DX 1ST TO 1 HR UNCLASSIF J3490 VAL[facility]Z KELLOGG IED DRUGS 6 [facility] INC INC COMPREHEN 59330 VALDEZ KELLOGG SIVE 6 [facility] METABOLIC INC INC PANEL INJECTION J2405 VALDEZPEDRO PABLO KELLOGG 6 [facility] HOS[facility] ONDANSETR INC INC ON HCL PER 1 MG US PELVIC 25843 RADIOLOGY DRANSFELD 6 INC [place] NONOBSTET VIJAY REAL-TIME IMAGE COMPLETE US SOFT 49675 RADIOLOGY DRANSFELD TISSUE 6 INC MONICA HEAD & NECK REAL TIME IMGE DOCM THYROID 70839 THREE THREE STIMULATI 6 MA MA NG IMMUNE MED CTR MED CTR GLOBULINS TSI MICROSOMA 20951 THREE THREE L 6 ANTIBODIE MED CTR MED CTR S EACH BLOOD 20139 THREE THREE COUNT 6 COMPLETE [place] [address] THREE THREE TRIIODOTH 6 MA MA YRONINE MED [place]3 [place] [address] THREE THREE THYROID 6 STIMULATI MED [place] [address] THREE THREE FREE 6 [facility] MA THYROXINE MED CTR MED CTR ANES 32801 THREE ECKERT HYSTEROSC 6 [facility] CHR OPY&/HYST MEDICAL EROSALPIN CLIN GOGRAPHY W/BX INJECTION J2405 THREE THREE 6 [facility] ONDANSETR MED CTR MED CTR ON HCL PER 1 MG INJECTION J3010 THREE THREE FENTANYL 6 [facility] CITRATE MED CTR MED CTR 0.1 MG INJECTION J2704 THREE THREE PROPOFOL 6 [facility] MA 10 MG MED CTR MED CTR INFUSION J7030 THREE THREE NORMAL 6 [facility] SALINE MED CTR MED CTR SOLUTION 1000 CC UNCLASSIF J3490 THREE THREE IED DRUGS 6 [facility] MA MED CTR MED CTR INJECTION J2250 THREE THREE 6 [facility] MA MIDAZOLAM MED CTR MED CTR HCL PER 1 MG GONADOTRO 71835 THREE THREE PIN 6 [facility] CHORIONIC MED CTR MED CTR QUALITATI VE HYSTEROSC 97660 THREE COY PAL OPY 6 [facility] ENDOMETRI MEDICAL AL CLIN ABLATION PERM IMPL A4264 THREE THREE 6 MA [facility] CONTRACEP MED CTR MED CTR TIVE TUBAL OCCL DEV & DEL SYS RINGERS J7120 THREE THREE LACTATE 6 [facility] INFUSION MED CTR MED CTR UP TO 1000 CC RADEX 54428 THREE THREE ABDOMEN 1 6 [facility] MED CTR [place] [address] RADIOLOGY [facility] ABDOMEN & 6 INC PELVIS W/[place] [address] [facility], [address] PATHOLOGY GROSS&BARRINGTON ROSCOPIC EXAM ENDOMETRI 11355 THREE COY PAL AL BX 6 MA W/WO MEDICAL ENDOCERVI CLIN X BX W/[place] [address] THREE THREE TROPONIN 6 [facility] QUANTITAT MED CTR MED CTR BORA BLOOD 17718 THREE THREE COUNT 6 [facility] COMPLETE [place] [address] THREE THREE MAGNESIUM 6 [facility] MED CTR MED CTR CREATINE 78453 THREE THREE KINASE 6 [facility] TOTAL MED CTR MED CTR SEDIMENTA 19335 THREE THREE TION RATE 6 [facility] RBC MED CTR MED CTR NON-AUTOM ATED CREATINE 35024 THREE THREE KINASE MB 6 MA MA FRACTION MED CTR MED CTR ONLY COMPREHEN 12358 THREE THREE SIVE 6 MA MA METABOLIC MED CTR MED CTR PANEL C-REACTIV 00463 THREE COMPLIANC E PROTEIN 6 MA E MED CTR ADVANTAGE OPHTH 90958 LYSANDROU LYSANDROU MEDICAL 6 VILMA VILMA XM&EVAL COMPRE NEW PT 1/> VST US SOFT 48352 RADIOLOGY CURE KASSIE TISSUE 5 INC HEAD & NECK REAL TIME IMGE DOCM THYROGLOB 35909 THREE THREE ULIN 5 MA MA ANTIB[place] [address] THREE THREE TRIIODOTH 5 [facility] YRONINE MED CTR [place] [place] [address] THREE THREE THYROID 5 [facility] STIMULATI MED CTR [place] [address] THREE THREE FREE 5 [facility] THYROXINE MED CTR MED CTR LOCM Q9967 CENTRAL CENTRAL 300-399 5 RASTAFARI RASTAFARI MG/ML HOSP HOSP IODINE CONCENTRA TION PER ML INJECTION J2405 CENTRAL CENTRAL 5 RA[facility] RASTAFARI ONDANSETR HOSP [place] [address] [place] [address] C[facility]TRAL CENTRAL ANGIOGRAP 5 [facility] RASTAFARI HY CHEST HOSP HOSP W/CONTRAS [place] [address] CENTRAL CENTRAL AMYLASE 5 [facility] HOSP HOSP COMPREHEN 37699 CENTRAL CENTRAL SIVE 5 [facility] METABOLIC HOSP HOSP PANEL BLOOD 75806 CENTRAL CENTRAL COUNT 5 [facility] RA[facility]AFARI COMPLETE HOSP HOSP AUTO&[place] [address] CENTRAL CENTRAL TROPONIN 5 RA[facility] RASTAFARI QUANTITAT HOSP HOSP BORA NATRIURET 21794 CENTRAL CENTRAL IC 5 RA[facility]I PEPTIDE HOSP HOSP THERAPEUT 59663 CENTRAL CENTRAL IC 5 RA[facility]AF[facility] RA[facility]AF[facility]I INJECTION HOSP HOSP IV PUSH EACH NEW DRUG RADIOLOGI 20768 CENTRAL CENTRAL C 5 RASTAFARI RASTAFARI EXAMINATI HOSP HOSP ON CHEST SINGLE VIEW FRONTAL THROMBOPL 03581 CENTRAL CENTRAL ASTIN 5 RA[facility] RA[facility]AF[facility]I TIME HOSP HOSP PARTIAL PLASMA/WH OLE BLOOD URINE 29435 CENTRAL CENTRAL 5 RA[facility]I RA[facility]AF[facility]I TEST HOSP HOSP VISUAL COLOR CMPRSN METHS ECG 46443 CENTRAL CENTRAL ROUTINE 5 RASTAFARI RASTAFARI ECG HOSP HOSP W/LEAST 12 LDS TRCG ONLY W/O I&R INJECTION J1170 CENTRAL CENTRAL 5 RASTAF[facility]I RASTAFARI HYDROMORP HOSP HOSP CESAR UP TO 4 MG PROTHROMB 57611 CENTRAL CENTRAL IN TIME 5 RASTAF[facility]I RASTAFARI HOSP HOSP FIBRIN 17306 CENTRAL CENTRAL DGRADJ 5 RASTAFARI RASTAFARI PRODUCTS HOSP HOSP [place] [address] CENTRAL CENTRAL LIPASE 5 RASTAFARI RASTAFARI HOSP HOSP THER 17783 CENTRAL CENTRAL PROPH/DX 5 RASTAFARI RASTAFARI NJX IV HOSP HOSP PUSH SINGLE/1S T SBST/DRUG INJECTION J1100 THREE STICKLER 4 [facility] DEXAMETHO MEDICAL SONE CLIN SODIUM PHOSPHATE 1 MG THERAPEUT 94911 THREE STICKLER IC [facility] T[facility]/DX CLIN INJECTION SUBQ/IM INJECTION J2010 THREE STICKLER 4 [facility] LINCOMYCI MEDICAL N HCL UP CLIN TO 300 [facility] 11706 GREEN SORIANO GREEN SORIANO DISCHARGE 1 DAY MANAGEMEN T 30 MIN/< 1ST 12045 GREEN SORIANO GREEN SORIANO HOSP/LEXY 1 [facility] CARE PER DAY NML NB VAGINAL 05498 ALDRIDGE ALDRIDGE DELIVERY 1 JAM JAM ONLY W/POSTPAR CONCETTA CARE CUL 30102 LABONE OF LABONE OF PRSMPTV 1 Assignment Editor [facility] PTHGNC ORGANISM SCRN W/COLONY ESTIMJ IADNA 41790 LABONE OF LABONE OF CHLAMYDIA [address] [place] [address] [facility] TRACHOMAT IS AMPLIFIED PROBE TQ IADNA 57599 LABONE OF LABONE OF PAPILLOMA 1 [place] VIRUS HUMAN AMPLIFIED PROBE TQ CYTP C/V 16396 LAB[facility] OF LABONE OF AUTO THIN 1 [place] [facility] [place] INC LYR PREPJ SCR MNL RESCR PHYS US PREG 11009 ALDRIDGE ALDRIDGE UTERUS 1 JAM JAM AFTER 1ST TRIMEST GESTATION IADNA 72488 LABONE OF LABONE OF NEISSERIA 1 [place] INC [place] INC GONORRHOE AE AMPLIFIED PROBE TQ URINE 06851 [facility] 0 [place] TEST CO H D CO H D VISUAL COLOR CMPRSN METHS AUDITORY 31045 PEDIATRIX ADELIA, EVOKED 9 MEDICAL PAUL G POTENTIAL [place] S LIMITED PSC CIRCUMCIS 19672 WOMENLexie CHEEMA ION 9 [facility] W/CLAMP/O CENTER TH DEV PLLC W/BLOCK VAGINAL 75159 WOMENLexie CHEEMA, DELIVERY 9 CARE [facility] ONLY CENTER W/POSTPAR PLLC CONCETTA CARE 29066 WOMENLexie CHEEMA, NONSTRESS 9 [facility] TEST CENTER PLLC 79575 MIREYA CORTES BIOPHYSIC 9 CARE [facility] I AL CENTER PROFILE PLLC NON-STRES S TESTING CUL 64942 CENTRAL CENTRAL PRSMPTV 9 RASTAFARI RASTAFARI PTHGNC HOSP HOSP ORGANISM SCRN W/COLONY ESTIMJ US PREG 13191 MIREYA KOLB, UTERUS 9 CARE [facility] I AFTER 1ST CENTER TRIMEST PLLC GESTATION 3D 24987 MIREYA KOLB, RENDERING 9 CARE [facility] I CENTER W/INTERP& PLLC POSTPROC DIFF WORK STATION IADNA 75393 PATHOLOGY PATHOLOGY NEISSERIA 9 & & CYTOLOGY CYTOLOGY GONORRHOE LAB LAB AE AMPLIFIED PROBE TQ IADNA 92707 PATHOLOGY PATHOLOGY CHLAMYDIA 9 & & CYTOLOGY CYTOLOGY TRACHOMAT LAB LAB IS AMPLIFIED PROBE TQ CYTP C/V 93516 PATHOLOGY PATHOLOGY AUTO THIN 9 & & LYR CYTOLOGY CYTOLOGY PREPJ SCR LAB LAB MNL RESCR PHYS URINE 08853 [facility]/CO [facility] TEST CENTRAL CO H D VISUAL BANK ACCT COLOR CMPRSN METHS Encounters Encounter Start End Date Code Location Performer Type Date OFFICE 62279 [place] TAYLOR OUTPATIEN 7 7 HUMAN RESOURCES COMPLIANCE MANAGER T VISIT ASSOCIATE 15 S, MINUTES OFFICE 22164 DIANE SRKINS OUTPATIEN 7 7 HUMAN RESOURCES COMPLIANCE MANAGER T VISIT ASSOCIATE 15 S, MINUTES EMERGENCY 10020 [facility] 6 6 [facility] NAMED [facility] T VISIT HIGH/URGE NT SEVERITY HOSPITAL VALDEZ - 6 6 [facility] 61832 [facility] DEPT 6 6 PHYSICIAN [place] VISIT [facility] HIGH [facility]VERITY& THREAT [facility] H[facility] RASTAFARI [facility] 6 6 [facility] 6 6 [facility] 55868 EVELINA WILHELM [facility] 6 6 PHYSICIAN DEPARTMEN [facility] VISIT MODERATE SEVERITY EMERGENCY 12897 [facility] 6 6 [facility] VISIT LIMITED/M INOR PROB OFFICE 72539 [facility] HUMAN RESOURCES COMPLIANCE MANAGER ROSARIO T NEW 45 ASSOCIATE MINUTES S, HOSPITAL RASTAF[facility] - 6 6 [facility] 52466 RASTAFARI 6 6 [facility] VISIT HIGH/URGE NT SEVERITY EMERGENCY 97828 [facility] DEPT 6 6 EMERGENCY [facility] VISIT PHYS PSC HIGH SEVERITY& THREAT FUNJ EMERGENCY 80628 [facility] 6 6 [facility] VISIT HIGH/URGE NT SEVERITY HOSPITAL VALDEZ [facility] 6 6 [facility] 6 6 [facility] THREE - OTHER 6 6 [facility] THREE - 6 6 [facility] THREE - 6 6 [place] OUTPATIEN [facility] T OFFICE 01099 [facility] OUTPATIEN 6 6 MA T NEW 45 MEDICAL MINUTES CLIN HOSPITAL THREE [facility] OTHER 6 6 [facility] THREE - 5 5 [facility] OTHER 5 5 [facility] CENTRAL - 5 5 [facility] OUTPATIEN HOSP T EMERGENCY 12016 C[facility]AL 5 5 [facility] HIGH/URGE NT SEVERITY OFFICE 78219 THREE [facility] OUTPATIEN 4 4 MA THO T VISIT MEDICAL 25 CLIN MINUTES OFFICE 00355 [facility] OUTPATIEN 4 4 THO THO T NEW 30 MINUTES OFFICE 06809 [facility] ALDRIDGE OUTPATIEN 1 1 JAM JAM T VISIT 15 MINUTES OFFICE 36421 [facility] OUTPATIEN 1 1 JAM JAM T VISIT 15 MINUTES OFFICE 83352 [facility] OUTPATIEN 1 1 JAM JAM T VISIT 15 MINUTES OFFICE 61962 [facility] OUTPATIEN 1 1 JAM JAM T NEW 45 MINUTES OFFICE 99195 [facility] OUTPATIEN 0 0 YAIR MAZARIEGOS T VISIT CO H D CO H D 25 MINUTES OFFICE 80399 CAROLEE ECHEVERRIA 9 9 [facility] 15 PLLC MINUTES OFFICE 65751 CAROLEE ECHEVERRIA 9 9 [facility] 15 PLLC MINUTES OFFICE 12083 CAROLEE ECHEVERRIA 9 9 [facility] 15 PLLC MINUTES [facility] CENTRAL - 9 9 [facility] OUTPATIEN HOSP T OFFICE 79999 MIREYA CAROLEE CHEEMA 9 9 CARE BIANKA [facility] MINUTES OFFICE [id number] MIREYA CHEEMACAROLEE 9 9 CARE BIANKA [facility] 15 PLL MINUTES [facility] - 9 9 [facility] OFFICE [id number] MIREYA CHEEMACAROLEE 9 9 CARE BIANKA [facility]ENTER MINUTES [facility] OFFICE [id number] [facility] 9 9 [facility]ALTH [facility]IR [facility] [address] H D MINUTES [facility] ACCT
--- OUTSIDE RECORDS SUMMARY | 2016-10-31 11:57 | External Medical Summary Rpt ---
Demographics Preferred Language [place] Marital Status Unknown Orthodox Affiliation Unknown Race Unknown Ethnic Group Unknown Author Author , Organization [employer] Address Unknown Phone Unavailable Purpose Continuity of Care Document - through 2016 Immunization No patient found.
--- OUTSIDE RECORDS SUMMARY | 2016-10-31 11:57 | External Medical Summary Rpt ---
Author Author , Organization [employer] Address Unknown Phone Unavailable Care Team Providers Care Reed Or Wind Instrument Repairer Name Role Phone TAYLOR, TAYOLR Unavailable Unavailable TAYLOR ROSARIO, TAYLOR Unavailable Unavailable [facility] Unavailable Unavailable [facility] PAMELA CATHY, PAMELA CATHY Unavailable Unavailable [facility], Unavailable Unavailable [facility] Unavailable [facility]available [facility], [facility] Unavailable Unavailable ANESTHESIA, [facility] CHIPPS MARIO & Unavailable Unavailable DUBILIER, CHIPPS MARIO & DUBILIER CHIRICO PET, CHIRICO Unavailable Unavailable [facility], Unavailable Unavailable [facility] COY PAL, COY PAL Unavailable Unavailable JOB ANDERSON, Unavailable Unavailable BIANKA MCCONNELL, Unavailable Unavailable BIANKA CHEEMA MAR, CONTRERAS MAR Unavailable Unavailable GOUZD ZULEYMA, GOUZD ZULEYMA Unavailable Unavailable GREEN SORIANO, GREEN SORIANO Unavailable Unavailable GREEN SORIANO, GREEN SORIANO Unavailable Unavailable [facility] Un[facility] Un[facility], [facility] WILHELM GINETTE, WILHELM GINETTE Unavailable Unavailable [facility] LOI GHADA Unavailable [...] D, [place] [facility] [place] [facility]ELOP[facility] SPECIALIST Unavailable Unavailable ASSOCIATES,, [place] [facility], RIVERA, RIVERA Unavailable Unavailable LYSANDROU VILMA, [...] INC RENUSCH MONICA, RENUSCH Unavailable Unavailable MONICA MCKINLEYCHMAN KIERSTEN, Unavailable Unavailable RUSCHMAN KIERSTEN ST[facility] THO, Unavailable Unavailable [facility], Unavailable Unavailable [facility], Unavailable Unavailable [facility] Unavailable Unavailable CLIN, [id number], Unavailable Unavailable [id number] # Unavailable Unavailable 9857, [id number] # [id number] ECKERT CHR, ECKERT Unavailable Unavailable CHR Purpose Continuity of Care Document - 04-07-2009 through 2016 Problems Code Diagnosis DOS Provider Status B373 CANDIDIASIS 09-04-2016 DIANE OF [facility]UL[facility] 4 H YOU[facility] DEVELOPMENT SPECIALIST AND VAGINA ASSOCIATES, L292 PRURITUS 09-04-2016 [facility] VULVAE 4 [facility], L298 OTHER 09-04-2016 LAB LOI PRURITUS GHADA HOLDINGS N760 ACUTE 09-04-2016 [facility] VAGINITIS 4 H [facility], N898 OTHER 09-04-2016 LAB LOI SPECIFIED GHADA NONINFLAMMA HOLDINGS TORY DISORDERS VAGINA R300 DYSURIA 09-04-2016 [facility] 4 [facility], R51 HEADACHE 09-04-2016 [facility] 4 [facility], X81482 HORMONE 08-24-2016 [facility] REPLACEMENT 4 H YOUTH DEVELOPMENT SPECIALIST THERAPY ASSOCIATES, POSTMENOPAU AVI K5641 FECAL 05-26-2016 [facility] K5900 CONSTIPATIO 05-26-2016 EVELINA N PHYSICIANS, UNSPECIFIED [facility] K5903 DRUG 05-26-2016 [facility] CONSTIPATIO INC N N200 CALCULUS OF 05-26-2016 [facility] N736 FEMALE 04-25-2016 [facility] PELVIC 4 H YOUTH DEVELOPMENT SPECIALIST PERITONEAL ASSOCIATES, ADHESIONS POSTINFECTI VE N800 ENDOMETRIOS 04-25-2016 DIANE IS OF 4 H YOUTH DEVELOPMENT SPECIALIST UTERUS ASSOCIATES, N803 ENDOMETRIOS 04-25-2016 DIANE IS OF 4 H YOUTH DEVELOPMENT SPECIALIST PELVIC ASSOCIATES, PERITONEUM N809 ENDOMETRIOS 04-25-2016 [facility] IS [place] UNSPECIFIED ANESTHESIA N8301 FOLLICULAR 04-25-2016 CHIPPS CYST OF MARIO & RIGHT OVARY DUBILIER N8302 FOLLICULAR 04-25-2016 CHIPPS CYST OF MARIO & LEFT OVARY DUBILIER N946 DYSMENORRHE 04-25-2016 [facility]AL A [place] UNSPECIFIED ANESTHESIA N72 INFLAMMATOR 04-23-2016 [facility] Y DISEASE HEALTH OF CERVIX [place] UTERI N921 EXCESS & 04-23-2016 [facility] FREQUENT [facility]ALTH MENSTRUATIO [facility] N W/IRREGULAR CYCLE N939 ABNORMAL 04-23-2016 [facility] UTERINE & HEALTH VAGINAL [place] BLEEDING UNSPECIFIED I93725 ENCOUNTER 04-23-2016 [facility] FOR OTHER HEALTH PREPROCEDUR [place] AL EXAMINATION 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 PERSONAL 04-23-2016 [facility] HISTORY OF HEALTH NICOTINE [place] DEPENDENCE J111 FLU D/T 04-14-2016 [facility], D FLU VIRUS PLLC W/OTH RESP MANIF N920 EXCESS & 04-03-2016 [facility] FREQUENT 4 H YOUTH DEVELOPMENT SPECIALIST MENSTRUATIO ASSOCIATES, N W/REGULAR CYCLE N9410 UNSPECIFIED 04-03-2016 [facility] 4 H YOUTH DEVELOPMENT SPECIALIST DYSPAREUNIA ASSOCIATES, R102 PELVIC AND 04-03-2016 [facility] PERINEAL 4 H YOUTH DEVELOPMENT SPECIALIST PAIN ASSOCIATES, D259 LEIOMYOMA 03-15-2016 C[facility]AL OF UTERUS EMERGENCY UNSPECIFIED PHYS PSC R109 UNSPECIFIED 03-15-2016 [facility]AL ABDOMINAL EMERGENCY PAIN PHYS PSC N8320 UNSPECIFIED 12-17-2015 [facility] CYSTS IMAGING ASS R1032 LEFT LOWER 12-17-2015 [facility] PAIN IM[facility] ASS E042 NONTOXIC 10-26-2015 RADIOLOGY MULTINODULA INC R GOITER E079 DISORDER OF 10-22-2015 THREE THYROID MA MED UNSPECIFIED CTR E049 NONTOXIC 10-12-2015 THREE GOITER MA MED UNSPECIFIED CTR R110 NAUSEA 09-17-2015 RADIOLOGY INC R140 ABDOMINAL 09-17-2015 RADIOLOGY DISTENSION INC GASEOUS R079 CHEST PAIN 08-02-2015 THREE UNSPECIFIED MA MED CTR 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 D649 ANEMIA 04-17-2015 [facility] UNSPECIFIED [facility] Z720 TOBACCO USE 04-17-2015 [facility] 48068 DYSFUNCTION 02-06-2014 THREE OF [facility] 4619 ACUTE 02-06-2014 THREE SINUSITIS, [place] UNSPECIFIED MEDICAL CLIN 490 BRONCHITIS 02-06-2014 THREE NOT MA SPECIFIED MEDICAL ACUTE OR CLIN CHRONIC 7862 COUGH 02-06-2014 [facility] 11162 UNSPECIFIED 12-16-2013 STICKLER INFECTIVE THO OTITIS EXTERNA 59805 UNSPECIFIED 12-16-2013 STICKLER OTALGIA THO V3000 SINGLE 07-22-2010 [facility] W/O 650 NORMAL 07-20-2010 [facility] MANDEEP DELIVERY V270 OUTCOME OF 07-20-2010 ALDRIDGEDYLLAN KAUFMAN DELIVERY SINGLE LIVEBORN 67509 ABNORMAL 07-18-2010 LUIS CARLOS KAUFMAN MATERNAL GLUCOSE TOLERANCE ANTEPARTUM V221 SUPERVISION 07-04-2010 [facility] MANDEEP OF OTHER NORMAL V2889 OTHER 07-04-2010 LABONE OF SPECIFIED [place] INC SCREENING V237 INSUFFICIEN 06-27-2010 LUIS CARLOS KAUFMAN T CARE V7242 06-22-2010 [place] EXAMINATION [place] OR TEST H D POSITIVE RESULT V7219 OTHER 06-11-2009 PED[facility]AT[facility]X EXAMINATION [facility] [place] PSC AND HEARING 09180 UNSPEC 06-10-2009 [facility] TL PROB PLLC AFFECT MGMT MOTH DELIV V502 ROUTINE OR 06-10-2009 [facility] CIRCUMCISIO PLLC N 09587 DECR 06-09-2009 [facility] MGMT MOTH PLLC ANTPRTM COND/COMP 35802 INFECTION 05-19-2009 [facility] DUE OTHER [facility] SPEC [facility]OS[facility] BACTERIA CCE & UNS SITE 86512 OTH SPEC 05-19-2009 [facility] MATERNAL [facility] INF&PARASIT HOS[facility] IC DISEASE ANTPRTM V283 ENCOUNTER [...] 30 30 00 VA Ac ON 09 -0 -1 .0 00 DONNIE ti [place] 30 [...] 0. C 5 MG TA BL ET CL 00 12 01 60 30 00 VA Ac ON 18 -0 -1 .0 00 DONNIE ti [place] 50 8- 3- 00 01 E ve EP 06 20 20 47 ME AM 41 16 17 24 D 1 0 93 IN C MG TA BL ET FL 63 12 01 60 30 00 VA Ac UO 30 -0 -1 .0 00 DONNIE ti XE 40 8- 3- 00 01 E ve TI 63 20 20 47 ME NE 20 16 17 24 D 1 94 IN HC C L 40 MG CA PS UL E 00 01 01 0 20 3 WA [...] 00 10 5 WA 27 DU Ac NV 00 -0 -1 .0 LG 46 NC ti FL 40 9- 9- 00 RE 24 AN ve U 80 20 20 EN 75 08 09 09 S TH 5 #0 OM MG 98 57 J CA PS UL E Procedures Procedure DOS Code Location Performer Comment URNLS DIP 05571 [place] T[place] 7 4 H YOUTH DEVELOPMENT SPECIALIST STICK/TAB ASSOCIATE LET S, REAGENT AUTO MICROSCOP Y IADNA NOS 81533 LAB LOI LAB LOI 7 GHADA GHADA AMPLIFIED HOLDINGS HOLDINGS PROBE TQ EACH ORGANISM IADNA 25870 LAB LOI LAB LOI [place] 7 GHADA GHADA SPECIES HOLDINGS HOLDINGS [place] [id number] LAB LOI LAB LOI NON-IMMUN 7 GHADA GHADA OLOGIC HOLDINGS HOLDINGS OTH/THN CYTOPATHI C SMR PRIM 51726 T[facility]CARORA TAYLOR SRC WET 7 4 H YOUTH DEVELOPMENT SPECIALIST MOUNT ASSOCIATE NFCT AGT S, CULTURE 07896 LAB LOI LAB LOI BACTERIAL 7 GHADA GHADA HOLDINGS HOLDINGS QUANTTATI VE COLONY COUNT URINE THER 03195 [facility] PROPH/DX 6 [facility] NJX EA INC INC SEQL IV PUSH SBST/DRUG FAC RADEX 45484 [facility] ABDOMEN 6 [facility] COMPL INC INC W/DCBTS&/ ERC VIEWS THER 84825 [facility] PROPH/DX 6 [facility] NJX IV INC INC PUSH SINGLE/1S T SBST/DRUG THERAPEUT 14086 [facility] IC 6 [facility] INJECTION INC INC IV PUSH EACH NEW DRUG BLOOD 35866 [facility] COUNT 6 [facility] COMPLETE [facility] AUTO&AUTO DIFRNTL WBC BASIC 40539 [facility] METABOLIC 6 [facility] PANEL [facility] CALCIUM TOTAL INJECTION J0694 [facility] 6 [facility] CEFOXITIN [facility] SODIUM 1 G INJECTION J1170 [facility] 6 [facility] HYDROMORP [facility] CESAR UP TO 4 MG INJECTION J1644 [facility] HEPARIN 6 [facility]ALTH [facility]ALTH SODIUM [facility] PER 1000 UNITS INJECTION J0694 [facility] 6 [facility] CEFOXITIN [facility] SODIUM 1 G INJECTION J2704 [facility] PROPOFOL 6 [facility]ALTH HEALTH 10 MG [facility] INJECTION J2710 [facility] 6 [facility] NEOSTIGMI [facility] NE METHYLSUL FATE UP TO 0.5 MG INJECTION J3010 [facility] FENTANYL 6 [facility]ALTH HEALTH CITRATE [facility] 0.1 MG INJECTION J1100 [facility] 6 [facility] HEALTH DEXAMETHO [facility] SONE SODIUM PHOSPHATE 1 MG INJECTION J1170 [facility] 6 [facility] HEALTH HYDROMORP [facility] CESAR UP TO 4 MG LAPS 82813 [facility] TOTAL 6 [facility] HYSTERECT [facility] 250 GM/< W/RMVL TUBE/OVAR Y INJECTION J2250 [facility] 6 [facility] MIDAZOLAM [facility] HCL PER 1 MG ANESTHESI 78377 CENTRAL GOUZD ZULEYMA A [address] [place] [address] INTRAPERI ANESTHESI TONEAL A LOWER ABD W/[place] [address] [facility] SURG 6 [facility] HEALTH PATHOLOGY [facility] GROSS&[place] ROSCOPIC EXAM INJECTION J2405 [facility] 6 [facility] HEALTH ONDANSETR [facility] ON HCL PER 1 MG INJECTION J2550 [facility] 6 [facility] HEALTH PROMETHAZ [facility] INE HCL UP TO 50 MG HOSPITAL G0378 [facility] OBSERVATI 6 [facility] ON [facility] SERVICE PER HOUR COLLECTIO 95380 [facility] N VENOUS 6 [facility]ALTH BLOOD [facility] VENIPUNCT URE ANTIBODY 50278 [facility] SCREEN 6 [facility] RBC EACH [facility] SERUM TECHNIQUE BLOOD 43846 [facility] TYPING 6 [facility]ALTH [facility]ALTH SEROLOGIC [facility] ABO GONADOTRO 80721 [facility] PIN 6 HEALTH HEALTH CHORIONIC [facility] QUANTITAT BORA ANTIBODY 77407 [facility] ID RBC 6 HEALTH HEALTH ANTIBODIE [facility] S EA PANEL EA SERUM TQ COMPATIBI 93137 [facility] LITY EACH 6 [facility]ALTH [facility] UNIT [facility] IMMEDIATE SPIN TECHNIQUE COMPATIBI 15125 [facility] LITY EACH 6 [facility]ALTH UNIT [facility] ANTIGLOBU BILL BLOOD 44943 [facility] TYPING 6 [facility] HEALTH SEROLOGIC [facility] RH (D) BLOOD 29649 [facility] COUNT 6 [facility]ALTH HEALTH COMPLETE [facility] AUTOMATED URNLS DIP 69894 [facility] 6 [facility] STICK/TAB [facility] LET REAGENT AUTO MICROSCOP Y BLOOD 59182 [facility] COUNT 6 [facility] HEALTH COMPLETE [facility] AUTO&AUTO DIFRNTL WBC US PELVIC 65782 CENTRAL CONTRERAS MAR 6 RADIOLOGY NONOBSTET ASSOC VIJAY REAL-TIME IMAGE COMPLETE URINE 05812 [facility] 6 [facility]ALTH HEALTH TEST [facility] VISUAL COLOR CMPRSN METHS INJECTION J1885 [facility] 6 [facility] KETOROLAC [facility] TROMETHAM INE PER 15 MG THER 82553 [facility] PROPH/DX 6 [facility] NJX IV [facility] PUSH SINGLE/1S T SBST/[place] [address] [facility] LIPASE 6 [facility] HEALTH [facility] [place] [address] [facility] TRANSVAGI 6 [facility] NAL [facility] COMPREHEN 59735 [facility] SIVE 6 [facility] METABOLIC [facility] [place] [address] [facility] ABDOMEN & 6 MEM H[facility] MEM HOSP PELVIS INC INC W/O CONTRAST MATERIAL INJECTION J2405 [facility] 6 [facility]OS[facility] ONDANSETR INC INC ON HCL PER 1 MG COMPREHEN 75316 [facility] SIVE 6 [facility] METABOLIC INC INC PANEL UNCLASSIF J3490 [facility] IED DRUGS 6 [place] [address] [facility] INFUSION 6 [facility] THERAPY/P INC INC ROPHYLAXI S /DX 1ST TO 1 HR URNLS DIP 97860 [facility] 6 [facility] STICK/TAB INC INC LET REAGENT AUTO MICROSCOP Y BLOOD 91658 [facility] COUNT 6 [facility]OS[facility] COMPLETE INC INC AUTO&AUTO DIFRNTL WBC THERAPEUT 43031 [facility] IC 6 [facility]OS[facility] INJECTION INC INC IV PUSH EACH NEW DRUG US PELVIC 34114 [facility] 6 INC MONICA NONOBSTET VIJAY REAL-TIME IMAGE COMPLETE US SOFT 98072 [facility] TISSUE 6 INC MONICA HEAD & NECK REAL TIME IMGE DOCM THYROID 22179 THREE THREE STIMULATI 6 [facility] NG IMMUNE MED CTR MED CTR GLOBULINS TSI MICROSOMA 96993 THREE THREE L 6 [facility] ANTIBODIE [place] [address] THREE THREE TRIIODOTH [address] [place] [address] YRONINE MED CTR MED CTR T3 FREE BLOOD 96050 THREE THREE COUNT [address] [place] [address] COMPLETE [place] [address] THREE THREE FREE [address] [place] [address] THYROXINE [place] [address] THREE THREE THYROID [address] [place] [address] STIMULATI MED CTR MED CTR NG HORMONE TSH INJECTION J2405 THREE THREE [address] [place] [address] ONDANSETR MED CTR MED CTR ON HCL PER 1 MG ANES 80726 THREE ECKERT HYSTEROSC [address] [place] [address] CHR OPY&/HYST MEDICAL EROSALPIN CLIN GOGRAPHY W/BX GONADOTRO 22367 THREE THREE PIN [address] [place] [address] CHORIONIC MED CTR MED CTR QUALITATI VE INJECTION J2250 THREE THREE 6 [facility] MIDAZOLAM MED CTR MED CTR HCL PER 1 MG UNCLASSIF J3490 THREE THREE IED DRUGS [address] [place] [address] MED CTR MED CTR RINGERS J7120 THREE THREE LACTATE [address] [place] [place] [address] INFUSION MED CTR MED CTR UP TO 1000 CC PERM IMPL A4264 THREE THREE 6 [facility] CONTRACEP MED CTR MED CTR TIVE TUBAL OCCL DEV & DEL SYS HYSTEROSC 36506 THREE THREE OPY [address] [place] [place] [address] ENDOMETRI MED CTR MED CTR AL ABLATION INFUSION J7030 THREE THREE NORMAL 6 [facility] SALINE MED CTR MED CTR SOLUTION 1000 CC INJECTION J2704 THREE THREE PROPOFOL [address] [place] [address] 10 MG MED CTR MED CTR INJECTION J3010 THREE THREE FENTANYL 6 [facility] CITRATE MED CTR MED CTR 0.1 MG RADEX 15205 RADIOLOGY [place] ABDOMEN 1 6 [place] [address] RADIOLOGY PAMELA CATHY ABDOMEN & 6 INC PELVIS W/CONTRAS T MATERIAL ENDOMETRI 96879 THREE COY PAL AL BX 6 MA W/WO MEDICAL ENDOCERVI CLIN X BX W/[place] [address] P&C LABS, [facility] SURG 6 [facility] PATHOLOGY GROSS&[place] ROSCOPIC EXAM SEDIMENTA 37460 THREE THREE TION RATE 6 [facility] RBC MED CTR MED CTR NON-AUTOM ATED CREATINE 96827 THREE THREE KINASE 6 [facility] [place] [address] THREE THREE MAGNESIUM 6 [facility] MED CTR MED CTR BLOOD 00108 THREE THREE COUNT 6 [facility] COMPLETE [place] [address] THREE THREE TROPONIN 6 [facility] QUANTITAT MED CTR MED CTR BORA C-REACTIV 44893 THREE COMPLIANC E PROTEIN 6 [facility] E MED CTR ADVANTAGE COMPREHEN 55063 THREE THREE SIVE 6 [facility] METABOLIC MED CTR MED CTR PANEL CREATINE 16857 THREE THREE KINASE MB 6 [facility] FRACTION MED CTR MED CTR ONLY OPHTH 38063 LYSANDROU LYSANDROU MEDICAL 6 VILMA VILMA XM&EVAL COMPRE NEW PT 1/> VST US SOFT 00311 THREE THREE TISSUE 5 [facility] HEAD & MED CTR MED [place] [address] THREE THREE TRIIODOTH 5 [facility] YRONINE MED CTR MED CTR T3 FREE THYROGLOB 75662 THREE THREE ULIN 5 [facility] ANTIBODY [place] [address] THREE THREE FREE 5 [facility] THYROXINE [place] [address] THREE THREE THYROID 5 [facility] MA STIMULATI MED CTR MED CTR NG HORMONE TSH COMPREHEN 96976 [facility] SIVE 5 [facility] [place] [address] [facility] AMYLASE [address] [place] [address] [facility] ANGIOGRAP 5 [facility] HY CHEST HOSP HOSP W/CONTRAS T/NONCONT RAST INJECTION J2405 [place] [facility] 5 [facility] ONDANSETR HOSP HOSP ON HCL PER 1 MG LOCM Q9967 [facility] 300-399 5 [facility] MG/ML HOSP HOSP IODINE CONCENTRA TION PER ML THERAPEUT 38008 [place] [facility] IC 5 [facility] INJECTION HOSP HOSP IV PUSH EACH NEW DRUG NATRIURET 14945 [facility] IC 5 [facility] [address] [place] [facility] TROPONIN 5 [facility] QUANTITAT HOSP HOSP BROA BLOOD 37079 [facility] COUNT 5 [facility] COMPLETE HOSP HOSP AUTO&AUTO DIFRNTL WBC URINE 21124 [facility] 5 [facility] TEST HOSP HOSP VISUAL COLOR CMPRSN METHS THROMBOPL 96193 [facility] ASTIN 5 [facility] TIME HOSP HOSP PARTIAL PLASMA/WH OLE BLOOD RADIOLOGI 20594 [facility] C 5 [facility] EXAMINATI HOSP HOSP ON CHEST SINGLE VIEW FRONTAL THER 79726 [facility] PROPH/DX 5 [facility] NJX IV HOSP HOSP PUSH SINGLE/1S T SBST/[place] [address] [facility] LIPASE 5 [facility] HOSP FIBRIN 39606 [facility] DGRADJ 5 [facility] PRODUCTS HOSP HOSP D-DIMER QUANTITAT BORA PROTHROMB 58171 [facility] IN TIME 5 [facility] HOSP INJECTION J1170 [facility] 5 [facility] HYDROMORP HOSP HOSP CESAR UP TO 4 MG ECG 15450 [facility] ROUTINE 5 [facility] ECG HOSP HOSP W/LEAST 12 LDS TRCG ONLY W/O I&R INJECTION J1100 THREE STICKLER 4 [facility] THO DEXAMETHO MEDICAL SONE CLIN SODIUM PHOSPHATE 1 MG THERAPEUT 80509 THREE [facility] IC 4 [facility] PROPHYLAC MEDICAL TIC/DX CLIN INJECTION SUBQ/IM INJECTION J2010 THREE [facility] 4 [facility] LINCOMYCI MEDICAL N HCL UP CLIN TO 300 [facility] HOSP[facility] 0[address]67 S[facility] STRATTON SORIANO DISCHARGE 1 DAY MANAGEMEN T 30 MIN/< 1ST 89140 [facility] HOSP/LEXY 1 [facility] CENTER CARE PER DAY NML NB VAGINAL 92344 [facility] DELIVERY 1 JAM JAM ONLY W/POSTPAR CONCETTA CARE CUL 17901 [facility] PRSMPTV 1 [facility] Lybrate [facility] PTHGNC ORGANISM SCRN W/COLONY ESTIMJ IADNA 73192 [facility] CHLAMYDIA 1 [facility] TRACHOMAT IS AMPLIFIED PROBE TQ CYTP C/V 01876 [facility] AUTO THIN 1 [facility] LYR PREPJ SCR MNL RESCR PHYS IADNA 48804 [facility] PAPILLOMA 1 [facility] Lybrate [facility] VIRUS HUMAN AMPLIFIED PROBE TQ IADNA 69033 [facility] NEISSERIA 1 [facility] GONORRHOE AE AM[place] T[place] PREG 31714 [facility] UTERUS 1 JAM JAM AFTER 1ST TRIMEST GESTATION URINE 13714 [facility] 0 [place] TEST CO H D CO H D VISUAL COLOR CMPRSN METHS CIRCUMCIS 66852 [facility]OMENS ANETTE ION 9 CARE BIANKA Eddy W/CLAMP/O CENTER TH DEV PLLC W/BLOCK AUDITORY 93652 PEDIATRIX ADELIA, EVOKED 9 MEDICAL PAUL G POTENTIAL [place] S LIMITED PSC VAGINAL 63947 WOMENS ANETTE, DELIVERY 9 CARE BIANKA [place] ONLY CENTER W/POSTPAR PLLC CONCETTA CARE 79783 WOMENS ANETTE, NONSTRESS 9 CARE BIANKA J TEST CENTER PLL 66436 WOMENLexie KOLB BIOPHYSIC 9 CARE KENN I AL CENTER PROFILE PLLC NON-STRES S TESTING CUL 34959 [facility]AL PRSMPTV 9 [facility] H[facility]P ORGANISM SCRN W/COLONY ESTIMJ 3D 52238 MIREYA KOLB, RENDERING 9 CARE KENN I CENTER W/INTERP& PLLC POSTPROC DIFF WORK STATION US PREG 96514 MIREYA KOLB, UTERUS 9 CARE KENN I AFTER 1ST CENTER TRIMEST [facility] GESTATION IADNA 84876 PATHOLOGY PATHOLOGY NEISSERIA 9 & & CYTOLOGY CYTOLOGY GONORRHOE LAB LAB AE AMPLIFIED PROBE TQ IADNA 92473 PATHOLOGY PATHOLOGY CHLAMYDIA 9 & & CYTOLOGY CYTOLOGY TRACHOMAT LAB LAB IS AMPLIFIED PROBE TQ CYTP C/V 16824 PATHOLOGY PATHOLOGY AUTO THIN 9 & & LYR CYTOLOGY CYTOLOGY PREPJ SCR LAB LAB MNL RESCR PHYS URINE 63480 [facility] [place] 9 [facility] [place] TEST CENTRAL CO H D VISUAL BANK ACCT COLOR CMPRSN METHS Encounters Encounter Start End Date Code Location Performer Type Date OFFICE 70778 [place] [facility] OUTPATIEN 7 7 4 H YOUTH DEVELOPMENT SPECIALIST T VISIT ASSOCIATE 15 S, MINUTES OFFICE 15556 [facility] 7 7 4 H YOUTH DEVELOPMENT SPECIALIST T VISIT ASSOCIATE 15 S, MINUTES EMERGENCY 59665 [facility] 6 6 [facility] DEPART[facility] T VISIT HIGH/URGE NT SEVERITY [facility]OSPITAL [facility] - 6 6 [facility] OUTPATIEN INC T EMERGENCY 60774 EVELINA BRADFORD DEPT 6 6 PHYSICIAN MONICA VISIT [facility] HIGH SEVERITY& THREAT [facility] FAITH - 6 6 [facility] 36301 [facility] 6 6 [facility] DEPARTMEN INC T VISIT LIMITED/M INOR [facility] VALDEZ - 6 6 [facility] OUTPATIEN INC T EMERGENCY 33298 EVELINA PENG 6 6 PHYSICIAN DEPARTMEN [facility] T VISIT MODERATE SEVERITY OFFICE 83033 [facility] OUTPATIEN 6 6 4 H YOUTH DEVELOPMENT SPECIALIST [facility] NEW 45 ASSOCIATE MINUTES S, EMERGENCY 90816 [facility] VIS[facility] PHYS [facility] HIGH SEVERITY& THREAT [facility] 42968 FAITH 6 6 [facility] VISIT HIGH/URGE NT SEVERITY [facility]OSPITAL FA[facility] - 6 [facility] 6 6 [facility] 87689 [place] 6 6 [facility] VISIT [facility]IGH/URGE NT [facility]VERITY HOSPITAL THREE - OTHER 6 6 [facility] THREE - OTHER 6 6 [facility] THREE - 6 6 [facility]86 [facility] 6 6 [facility] NEW 45 MEDICAL MINUTES [facility] - OTHER 6 6 [facility] THREE - 5 5 [facility] [facility] [id number] [place] 5 5 [facility] VISIT HIGH/URGE NT SEVERITY OFFICE [id number] THREE [facility] OUTPATIEN 4 4 [facility] VISIT MEDICAL 25 CLIN MINUTES OFFICE [id number] ST[facility] STICKLER OUTPATIEN 4 4 O O T NEW 30 MINUTES OFFICE 54621 [facility] ALDRIDGE OUTPATIEN 1 1 JAM JAM T VISIT 15 MINUTES OFFICE 19149 ALDRDIGE ALDRIDGE OUTPATIEN 1 1 JAM JAM T VISIT 15 MINUTES OFFICE 40276 [facility] ALDRIDGE OUTPATIEN 1 1 JAM JAM T VISIT 15 MINUTES OFFICE 88827 [facility] ALDRIDGE OUTPATIEN 1 1 JAM JAM T NEW 45 MINUTES OFFICE 00184 [facility] CONTRERAS OUTPATIEN 0 0 [facility] T VISIT [facility] D 25 MINUTES OFFICE 57583 MIRYEA CHEEMA OUTPATIEN 9 9 [facility] 15 PLL MINUTES OFFICE 62345 MIREYA CHEEMA OUTPATIEN 9 9 [facility] 15 PLL MINUTES [facility] 9 9 [facility] 77822 MIREYA CHEEMA OUTPATIEN 9 9 [facility] 15 PLL MINUTES OFFICE 76342 MIREYA CHEEMA OUTPATIEN 9 9 [facility] 15 PLL MINUTES OFFICE 36329 MIREYA CHEEMA OUTPATIEN 9 9 [facility] 15 PLL MINUTES [facility] 9 9 [facility] 37131 MIREYA CHEEMA OUTPATIEN 9 9 [facility] J T NEW 45 CENTER MINUTES [facility] 51162 [facility] OUTPATIEN 9 9 [facility] NEW 45 CENTRAL CO H D MINUTES BANK ACCT
--- OUTSIDE RECORDS SUMMARY | 2016-10-31 11:57 | External Medical Summary Rpt ---
Demographics Preferred Language Tajik Marital Status Unknown Christianity Affiliation Unknown Race Unknown Ethnic Group Unknown Author Author , Organization [employer] Address Unknown Phone Unavailable Purpose Continuity of Care Document - through 2016 Immunization No patient found.
--- OUTSIDE RECORDS SUMMARY | 2016-10-31 11:57 | External Medical Summary Rpt ---
Author Author , Organization [employer] Address Unknown Phone Unavailable Care Team Providers Care Geographic Analyst Name Role Phone TAYLOR, TAYLOR Unavailable Unavailable TAYLOR ROSARIO, TAYLOR Unavailable Unavailable [facility] Unavailable Unavailable [facility] PAMELA CATHY, PAMELA CATHY Unavailable Unavailable [facility], Unavailable Unavailable [facility] Unavailable Unavailable [facility], [facility] Unavailable Unavailable ANESTHESIA, [facility] [place] [facility] CHIPPS MARIO & Unavailable Unavailable DUBILIER, [...] INC WILHELM GINETTE, WILHELM GINETTE Unavailable Unavailable [facility] Unavailable Unavailable [facility], [facility] LOI [facility] Unavailable [...] D, [place] [facility] [facility] Unavailable Unavailable ASSOCIATES,, [facility], RIVERA, RIVERA Unavailable Unavailable LYSANDROU VILMA, [...] STICKLER THO, Unavailable Unavailable [facility], Unavailable Unavailable [facility] Unavailable [id number], Unavailable Unavailable [id number] # Unavailable Unavailable 9857, [id number] # [phone] ECKERT CHR, ECKERT Unavailable Unavailable CHR Purpose Continuity of Care Document - 04-07-2009 through 2016 Problems Code Diagnosis DOS Provider Status B373 CANDIDIASIS 09-04-2016 [facility], L292 PRURITUS 09-04-2016 [facility], L298 OTHER 09-04-2016 LAB LOI PRURITUS [facility] HOLDINGS N760 ACUTE 09-04-2016 [facility] VAGINITIS [facility], N898 OTHER 09-04-2016 LAB LOI SPECIFIED [facility]ADA NONINFLAMMA HOLDINGS TORY DISORDERS VAGINA R300 DYSURIA 09-04-2016 [facility], R51 HEADACHE 09-04-2016 [facility], Y57208 HORMONE 08-24-2016 [facility] REPLACEMENT [facility], POSTMENOPAU AVI K5641 FECAL 05-26-2016 [facility] K5900 CONSTIPATIO 05-26-2016 EVELINA N PHYSICIANS, UNSPECIFIED [facility] K5903 DRUG 05-26-2016 [facility] INDUCED [facility] CONSTIPATIO INC N N200 CALCULUS OF 05-26-2016 [facility] N736 FEMALE 04-25-2016 [facility] PELVIC [facility] PERITONEAL [facility], ADHESIONS POSTINFECTI VE N800 ENDOMETRIOS 04-25-2016 DIAEN IS OF [facility] UTERUS [facility], N803 ENDOMETRIOS 04-25-2016 DIANE IS OF [facility] PELVIC [facility], PERITONEUM N809 ENDOMETRIOS 04-25-2016 [facility] [place] UNSPECIFIED ANESTHESIA N8301 FOLLICULAR 04-25-2016 [facility] CYST OF MARIO & RIGHT OVARY DUBILIER N8302 FOLLICULAR 04-25-2016 [facility] CYST OF [place] & LEFT OVARY DUBILIER N946 DYSMENORRHE 04-25-2016 [facility] [place] UNSPECIFIED ANESTHESIA N72 INFLAMMATOR 04-23-2016 [facility] Y DISEASE HEALTH OF CERVIX [facility] UTERI N921 EXCESS & 04-23-2016 [facility] FREQUENT HEALTH [facility]ENSTRUATIO [facility] N W/IRREGULAR CYCLE N939 ABNORMAL 04-23-2016 [facility] UTERINE & HEALTH VAGINAL [facility] BLEEDING UNSPECIFIED B39153 ENCOUNTER 04-23-2016 [facility] FOR OTHER HEALTH PREPROCEDUR [facility] AL EXAMINATION 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 PERSONAL 04-23-2016 [facility] HISTORY OF HEALTH NICOTINE [facility] DEPENDENCE J111 FLU D/T 04-14-2016 [facility], D FLU VIRUS PLLC W/OTH RESP MANIF N920 EXCESS & 04-03-2016 [facility] FREQUENT [facility] MENSTRUATIO ASSOCIATES, N W/REGULAR CYCLE N9410 UNSPECIFIED 04-03-2016 [facility] DYSPAREUNIA [facility], R102 PELVIC AND 04-03-2016 [facility] PERINEAL [facility] PAIN [facility], D259 LEIOMYOMA 03-15-2016 C[facility]AL OF UTERUS EMERGENCY UNSPECIFIED PHYS PSC R109 UNSPECIFIED 03-15-2016 [facility] ABDOMINAL EMERGENCY PAIN PHYS PSC N8320 UNSPECIFIED 12-17-2015 [place] [facility] R1032 LEFT LOWER 12-17-2015 [place] [facility] E042 NONTOXIC 10-26-2015 RADIOLOGY MULTINODULA INC R GOITER E079 DISORDER OF 10-22-2015 THREE THYROID [facility] MED UNSPECIFIED CTR E049 NONTOXIC 10-12-2015 THREE GOITER [place] MED UNSPECIFIED CTR R110 NAUSEA 09-17-2015 RADIOLOGY INC R140 ABDOMINAL 09-17-2015 RADIOLOGY DISTENSION INC GASEOUS R079 CHEST PAIN 08-02-2015 THREE UNSPECIFIED [facility] MED CTR 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 D649 ANEMIA 04-17-2015 [facility] UNSPECIFIED [facility] Z720 TOBACCO USE 04-17-2015 [facility] 72407 DYSFUNCTION 02-06-2014 THREE OF [facility] 4619 ACUTE 02-06-2014 THREE SINUSITIS, MA UNSPECIFIED MEDICAL CLIN 490 BRONCHITIS 02-06-2014 THREE NOT MA SPECIFIED MEDICAL ACUTE OR CLIN CHRONIC 7862 COUGH 02-06-2014 [facility] 90623 UNSPECIFIED 12-16-2013 STICKLER INFECTIVE THO OTITIS EXTERNA 13298 UNSPECIFIED 12-16-2013 STICKLER OTALGIA THO V3000 SINGLE 07-22-2010 [facility] W/O 650 NORMAL 07-20-2010 [facility] MANDEEP DELIVERY V270 OUTCOME OF 07-20-2010 ALDRIDGEDYLLAN KAUFMAN DELIVERY SINGLE LIVEBORN 54945 ABNORMAL 07-18-2010 LUIS CARLOS KAUFMAN MATERNAL GLUCOSE TOLERANCE ANTEPARTUM V221 SUPERVISION 07-04-2010 ALDR[facility]GE MANDEEP OF OTHER NORMAL V2889 OTHER 07-04-2010 LABONE OF SPECIFIED [place] INC SCREENING V237 INSUFFICIEN 06-27-2010 LUIS CARLOS KAUFMAN T CARE V7242 06-22-2010 [place] [facility] [place] OR TEST H D POSITIVE RESULT V7219 OTHER 06-11-2009 [facility] EXAMINATION [facility] [place] PSC AND HEARING 18516 UNSPEC 06-10-2009 [facility] TL PROB PLLC AFFECT MGMT MOTH DELIV V502 ROUTINE OR 06-10-2009 [facility] CIRCUMCISIO PLLC N 54121 DECR 06-09-2009 [facility] MGMT MOTH PLLC ANTPRTM COND/COMP 98920 INFECTION 05-19-2009 [facility] DUE OTHER [facility] SPEC HOSP BACTERIA CCE & UNS SITE 19688 OTH SPEC 05-19-2009 [facility] MATERNAL [facility] INF&PARASIT HOSP IC DISEASE ANTPRTM V283 ENCOUNTER [...] 00 10 5 WA 27 DU Ac [place] 00 -0 -1 .0 LG 46 NC ti FL 40 9- 9- 00 RE 24 AN ve U 80 20 20 EN 75 08 09 09 S TH 5 #0 OM MG 98 57 J CA PS UL E Procedures Procedure DOS Code Location Performer Comment URNLS DIP 35607 [place] TAYLOR 7 [facility] HAND STICK/TAB ASSOCIATE LET S, REAGENT AUTO MICROSCOP Y IADNA NOS 97875 LAB LOI LAB LOI 7 GHADA GHADA AMPLIFIED HOLDINGS HOLDINGS PROBE TQ EACH ORGANISM IADNA 10715 LAB LOI LAB LOI [place] 7 GHADA GHADA SPECIES HOLDINGS HOLDINGS [place] [address] LAB LOI LAB LOI NON-IMMUN 7 GHADA GHADA OLOGIC HOLDINGS HOLDINGS OTH/THN CYTOPATHI C SMR PRIM 05602 WHITNEY TAYLOR SRC WET 7 [facility] HAND MOUNT ASSOCIATE NFCT AGT S, CULTURE 74300 LAB LOI LAB LOI BACTERIAL 7 GHADA GHADA HOLDINGS HOLDINGS QUANTTATI VE COLONY COUNT URINE THER 34510 [facility] KELLOGG PROPH/DX 6 [facility] NJX EA INC INC SEQL IV PUSH SBST/DRUG FAC RADEX 84449 [facility] KELL[facility]GG ABDOMEN 6 [facility] COMPL INC INC W/DCBTS&/ ERC VIEWS THER 01957 [facility] KELLOGG PROPH/DX 6 [facility] NJX IV INC INC PUSH SINGLE/1S T SBST/DRUG THERAPEUT 55465 [facility] KE[facility]OGG IC 6 [facility] INJECTION INC INC IV PUSH EACH NEW DRUG BLOOD 85675 [facility] COUNT 6 [facility] COMPLETE [facility] AUTO&AUTO DIFRNTL WBC BASIC 39310 [facility] METABOLIC 6 [facility] PANEL [facility] CALCIUM TOTAL INJECTION J0694 [facility] 6 [facility] CEFOXITIN [facility] SODIUM 1 G INJECTION J1170 [facility] 6 [facility] HYDROMORP [facility] CESAR UP TO 4 MG INJECTION J1644 [facility] HEPARIN 6 [facility] SODIUM [facility] PER 1000 UNITS INJECTION J0694 [facility] OR[facility] OR[facility] 6 [facility] CEFOXITIN [facility] SODIUM 1 G INJECTION J2704 [facility] PROPOFOL 6 [facility]ALTH 10 MG [facility] INJECTION J2710 [facility] OR[facility]AL OR[facility]OX 6 [facility] NEOSTIGMI [facility] NE METHYLSUL FATE UP TO 0.5 MG INJECTION J3010 [facility] FENTANYL 6 [facility]ALTH HEALTH CITRATE [facility] 0.1 MG INJECTION J1100 [facility] 6 [facility] DEXAMETHO [facility] SONE SODIUM PHOSPHATE 1 MG INJECTION J1170 [facility] ORIENTAL ORTH[facility]OX 6 [facility] HYDROMORP [facility] CESAR UP TO 4 MG LAPS 79628 [facility] TOTAL 6 [facility] HYSTERECT [facility] 250 GM/< W/RMVL TUBE/OVAR Y INJECTION J2250 [facility] 6 [facility] MIDAZOLAM [facility] HCL PER 1 MG ANESTHESI 81450 [facility] GOUZD ZULEYMA A [address] [place] [address] INTRAPERI ANESTHESI TONEAL A LOWER ABD W/[place] L[place] [address] [facility] SURG 6 [facility] PATHOLOGY [facility] GROSS&BARRINGTON ROSCOPIC EXAM INJECTION J2405 [facility] 6 [facility] ONDANSETR [facility] ON HCL PER 1 MG INJECTION J2550 [facility] 6 [facility] PROMETHAZ [facility] INE HCL UP TO 50 [facility] G0378 [facility] OBSERVATI 6 [facility] ON [facility] SERVICE PER HOUR COLLECTIO 43228 [facility] N VENOUS 6 [facility] BLOOD [facility] VENIPUNCT URE ANTIBODY 95526 [facility] SCREEN 6 [facility]ALTH RBC EACH [facility] SERUM TECHNIQUE BLOOD 03897 [facility] TYPING 6 [facility] SEROLOGIC [facility] ABO GONADOTRO 29499 [facility] PIN 6 [facility]ALTH HEALTH CHORIONIC [facility] QUANTITAT BORA ANTIBODY 32515 [facility] ID RBC 6 [facility] ANTIBODIE [facility] S EA PANEL EA SERUM TQ COMPATIBI 14961 [facility] LITY EACH 6 [facility] UNIT [facility] IMMEDIATE SPIN TECHNIQUE COMPATIBI 68292 [facility] LITY EACH 6 [facility] UNIT [facility] ANTIGLOBU BILL BLOOD 58897 [facility] TYPING 6 [facility] SEROLOGIC [facility] RH (D) BLOOD 94838 [facility] COUNT 6 [facility]ALTH COMPLETE [facility] AUTOMATED URNLS DIP 83642 [facility] 6 [facility] STICK/TAB [facility] LET REAGENT AUTO MICROSCOP Y BLOOD 99590 [facility] COUNT 6 [facility] COMPLETE [facility] AUTO&AUTO DIFRNTL WBC US PELVIC 94896 [facility] CONTRERAS MAR 6 [facility] NONOBSTET ASSOC VIJAY REAL-TIME IMAGE COMPLETE URINE 28233 [facility] 6 [facility] TEST [facility] VISUAL COLOR CMPRSN METHS INJECTION J1885 [facility] 6 [facility] KETOROLAC [facility] TROMETHAM INE PER 15 MG THER 04864 [facility] PROPH/DX 6 [facility] NJX IV [facility] PUSH SINGLE/1S T SBST/[place] [address] [facility] LIPASE 6 [facility] [place] [address] [facility] TRANSVAGI 6 [facility] NAL [facility] COMPREHEN 66304 [facility] SIVE 6 [facility] METABOLIC [facility] [place] [address] [facility] EKLLOGG ABDOMEN & 6 MEM H[facility] MEM [facility]OSP PELVIS INC INC W/O CONTRAST MATERIAL INJECTION J2405 [facility] KELLOGG 6 [facility]OS[facility] ONDANSETR INC INC ON HCL PER 1 MG COMPREHEN 04652 [facility] SIVE 6 [facility] METABOLIC INC INC PANEL UNCLASSIF J3490 [facility] KE[facility] IED DRUGS 6 [place] [address] [facility] INFUSION 6 [facility] THERAPY/P INC INC ROPHYLAXI S /DX 1ST TO 1 HR URNLS DIP 18696 [facility] KELLOGG 6 [facility] STICK/TAB INC INC LET REAGENT AUTO MICROSCOP Y BLOOD 31757 [facility] COUNT 6 [facility]OS[facility] COMPLETE INC INC AUTO&AUTO DIFRNTL WBC THERAPEUT 38585 [facility] IC 6 [facility]OS[facility] INJECTION INC INC IV PUSH EACH NEW DRUG US PELVIC 71387 RADIOLOGY DRANSFORMERLY [facility] 6 INC [place] NONOBSTET VIJAY REAL-TIME IMAGE COMPLETE US SOFT 18144 RADIOLOGY DRANSFORMERLY [facility] TISSUE 6 INC MONICA HEAD & NECK REAL TIME IMGE DOCM THYROID 04851 THREE THREE STIMULATI 6 [facility] NG IMMUNE MED CTR MED CTR GLOBULINS TSI MICROSOMA 00595 THREE THREE L 6 [facility] ANTIBODIE [place] [address] THREE THREE TRIIODOTH [address] [place] [address] YRONINE MED CTR MED CTR T3 FREE BLOOD 83885 THREE THREE COUNT [address] [place] [address] COMPLETE [place] [address] THREE THREE FREE [address] [place] [address] THYROXINE [place] [address] THREE THREE THYROID [address] [place] [address] STIMULATI MED CTR MED CTR NG HORMONE TSH INJECTION J2405 THREE THREE [address] [place] [address] ONDANSETR MED CTR MED CTR ON HCL PER 1 MG ANES 04791 THREE ECKERT HYSTEROSC [address] [place] [address] CHR OPY&/HYST MEDICAL EROSALPIN CLIN GOGRAPHY W/BX GONADOTRO 93779 THREE THREE PIN [address] [place] [address] CHORIONIC MED CTR MED CTR QUALITATI VE INJECTION J2250 THREE THREE 6 [facility] MIDAZOLAM MED CTR MED CTR HCL PER 1 MG UNCLASSIF J3490 THREE THREE IED DRUGS [address] [place] [address] MED CTR MED CTR RINGERS J7120 THREE THREE LACTATE [address] [place] [address] INFUSION MED CTR MED CTR UP TO 1000 CC PERM IMPL A4264 THREE THREE 6 [facility] CONTRACEP MED CTR MED CTR TIVE TUBAL OCCL DEV & DEL SYS HYSTEROSC 22509 THREE THREE OPY [address] [place] [address] ENDOMETRI MED CTR MED CTR AL ABLATION INFUSION J7030 THREE THREE NORMAL 6 [facility] SALINE MED CTR MED CTR SOLUTION 1000 CC INJECTION J2704 THREE THREE PROPOFOL [address] [place] [address] 10 MG MED CTR MED CTR INJECTION J3010 THREE THREE FENTANYL 6 [facility] CITRATE MED CTR MED CTR 0.1 MG RADEX 90176 RADIOLOGY [place] ABDOMEN 1 [address] [place] [address] RADIOLOGY PAMELA CATHY ABDOMEN & 6 INC PELVIS W/CONTRAS T MATERIAL ENDOMETRI 45711 THREE COY PAL AL BX 6 MA W/WO MEDICAL ENDOCERVI CLIN X BX W/[place] [address] P&C LABS, [facility] SURG 6 [facility] GROSS&[place]ARRINGTON ROSCOPIC EXAM SEDIMENTA 61329 THREE THREE TION RATE 6 [facility] RBC MED CTR MED CTR NON-AUTOM ATED CREATINE 32418 THREE THREE KINASE 6 [facility] [place] [address] THREE THREE MAGNESIUM 6 [facility] MED CTR MED CTR BLOOD 36105 THREE THREE COUNT 6 [facility] COMPLETE [place] [address] THREE THREE TROPONIN 6 [facility] QUANTITAT MED CTR MED CTR BORA C-REACTIV 26899 THREE COMPLIANC E PROTEIN 6 [facility] E MED CTR ADVANTAGE COMPREHEN 33659 THREE THREE SIVE 6 [facility] METABOLIC MED CTR MED CTR PANEL CREATINE 60934 THREE THREE KINASE MB 6 [facility] FRACTION MED CTR MED CTR ONLY OPHTH 46091 LYSANDROU LYSANDROU MEDICAL 6 VILMA VILMA XM&EVAL COMPRE NEW PT 1/> VST US SOFT 09919 THREE THREE TISSUE 5 [facility] HEAD & MED CTR MED [place] [address] THREE THREE TRIIODOTH 5 [facility] YRONINE MED CTR MED CTR T3 FREE THYROGLOB 70144 THREE THREE ULIN 5 [facility] [place]TIBODY [place] [address] THREE THREE FREE 5 [facility] THYROXINE [place] [address] THREE THREE THYROID 5 [facility] MA STIMULATI MED CTR MED CTR NG HORMONE TSH COMPREHEN 98596 [facility] SIVE 5 [facility] [place] [address] [facility] AMYLASE 5 [facility] [place] [address] [facility] ANGIOGRAP 5 [facility] HY CHEST HOSP HOSP W/CONTRAS T/NONCONT RAST INJECTION J2405 [place] [facility] 5 [facility] ONDANSETR HOSP HOSP ON HCL PER 1 MG LOCM Q9967 [facility] 300-399 5 [facility] MG/ML HOSP HOSP IODINE CONCENTRA TION PER ML THERAPEUT 78294 [place] [facility] IC 5 [facility] INJECTION HOSP HOSP IV PUSH EACH NEW DRUG NATRIURET 56585 [facility] IC 5 [facility] [address] [place] [facility] TROPONIN 5 [facility] QUANTITAT HOSP HOSP BORA BLOOD 78369 [facility] COUNT 5 [facility] COMPLETE HOSP HOSP AUTO&AUTO DIFRNTL WBC URINE 81990 [facility] 5 [facility] TEST HOSP HOSP VISUAL COLOR CMPRSN METHS THROMBOPL 22927 [facility] ASTIN 5 [facility] TIME HOSP HOSP PARTIAL PLASMA/WH OLE BLOOD RADIOLOGI 89610 [facility] C 5 [facility] EXAMINATI HOSP HOSP ON CHEST SINGLE VIEW FRONTAL THER 80521 [facility] PROPH/DX 5 [facility] NJX IV HOSP HOSP PUSH SINGLE/1S T SBST/[place] [address] [facility] LIPASE 5 [facility] HOSP HOSP FIBRIN 31784 [facility] DGRADJ 5 [facility] PRODUCTS HOSP HOSP D-DIMER QUANTITAT BORA PROTHROMB 24613 [facility] IN TIME 5 [facility] HOSP HOSP INJECTION J1170 [facility] 5 [facility] HYDROMORP HOSP HOSP CESAR UP TO 4 MG ECG 06574 [facility] ROUTINE 5 [facility] ECG HOSP HOSP W/LEAST 12 LDS TRCG ONLY W/O I&R INJECTION J1100 THREE STICKLER 4 [facility] THO DEXAMETHO MEDICAL SONE CLIN SODIUM PHOSPHATE 1 MG THERAPEUT 63539 THREE STICKLER IC 4 [facility] PROPHYLAC MEDICAL TIC/DX CLIN INJECTION SUBQ/IM INJECTION J2010 THREE STICKLER 4 [facility] LINCOMYCI MEDICAL N HCL UP CLIN TO 300 [facility] 05151 [facility] STRATTON SORIANO DISCHARGE 1 DAY MANAGEMEN T 30 MIN/< 1ST 95718 [facility] HOSP/LEXY 1 [facility] CARE PER DAY NML NB VAGINAL 00606 [facility] ALDRIDGE DELIVERY 1 JAM JAM ONLY W/POSTPAR CONCETTA CARE CUL 54995 [facility] PRSMPTV 1 [facility] [employer] [facility] PTHGNC ORGANISM SCRN W/COLONY ESTIMJ IADNA 61919 [facility] CHLAMYDIA 1 [employer] [facility] TRACHOMAT IS AMPLIFIED PROBE TQ CYTP C/V 17939 [facility] AUTO THIN 1 [employer] [facility] LYR PREPJ SCR MNL RESCR PHYS IADNA 84368 [facility] PAPILLOMA 1 [facility] [facility] [employer] [facility] VIRUS HUMAN AMPLIFIED PROBE TQ IADNA 04961 [facility] NEISSERIA 1 [facility] GONORRHOE AE AMPLIFIED PROBE TQ US PREG 15701 [facility] ALDRIDGE UTERUS 1 JAM JAM AFTER 1ST TRIMEST GESTATION URINE 81130 [facility] 0 [place] TEST CO H D CO H D VISUAL COLOR CMPRSN METHS CIRCUMCIS 08073 WOMENS ANETTE ION 9 CARE BIANKA Eddy W/CLAMP/O CENTER TH DEV PLLC W/BLOCK AUDITORY 82587 PED[facility]AT[facility]X ADELIA, EVOKED 9 MEDICAL PAUL G POTENTIAL [facility] [place] S LIMITED PSC VAGINAL 50852 WOMENS ANETTE, DELIVERY 9 CARE BIANKA Nunu ONLY CENTER W/POSTPAR PLLC CONCETTA CARE 97875 WOMENS ANETTE, NONSTRESS 9 CARE BIANKA J TEST CENTER PLL 76713 WOMENLexie KOLB BIOPHYSIC 9 CARE KENN I AL CENTER PROFILE PLLC NON-STRES S TESTING CUL 17966 [facility] PRSMPTV 9 [facility] PTHGNC HOSP HOSP ORGANISM SCRN W/COLONY ESTIMJ 3D 71262 MIREYA KOLB, RENDERING 9 CARE KENN I CENTER W/INTERP& PLLC POSTPROC DIFF WORK STATION [place] PREG 69218 MIREYA KOLB, UTERUS 9 CARE KENN I AFTER 1ST CENTER TRIMEST [facility] GESTATION IADNA 16925 PATHOLOGY PATHOLOGY NEISSERIA 9 & & CYTOLOGY CYTOLOGY GONORRHOE LAB LAB AE AMPLIFIED PROBE TQ IADNA 25087 PATHOLOGY PATHOLOGY CHLAMYDIA 9 & & CYTOLOGY CYTOLOGY TRACHOMAT LAB LAB IS AMPLIFIED PROBE TQ CYTP C/V 25878 PATHOLOGY PATHOLOGY AUTO THIN 9 & & LYR CYTOLOGY CYTOLOGY PREPJ SCR LAB LAB MNL RESCR PHYS URINE 21381 [facility]/CO [place] [facility] TEST CENTRAL CO H D VISUAL BANK ACCT COLOR CMPRSN METHS Encounters Encounter Start End Date Code Location Performer Type Date OFFICE 63475 [place] [facility] OUT[facility]EN 7 7 CELLAR HAND T VISIT ASSOCIATE 15 S, MINUTES OFFICE 65281 [facility] 7 7 CELLAR HAND T VISIT ASSOCIATE 15 S, MINUTES EMERGENCY 18228 [facility] 6 6 [facility] T VISIT HIGH/URGE NT SEVERITY [facility]OSP[facility] - 6 6 [facility] OUTPATIEN INC T EMERGENCY 35382 EVELINA BRADFORD DEPT 6 6 PHYSICIAN [place] VISIT [facility] HIGH SEVERITY& THREAT [facility] ORIENTAL ORTHODOX - 6 6 HEALTH OUTPATIEN [facility] EMERGENCY 81776 [facility] 6 6 [facility] DEPARTMEN INC T VISIT LIMITED/M INOR [facility] VALDE[facility] - 6 6 [facility] OUTPATIEN INC T EMERGENCY 21928 EVELINA PENG 6 6 PHYSICIAN DEPARTMEN [facility] T VISIT MODERATE SEVERITY OFFICE 35100 [facility] OUTPATIEN 6 6 CELLAR HAND [facility] NEW 45 ASSOCIATE MINUTES S, EMERGENCY 92406 [facility] EMERGENCY [facility] VISIT [facility]YS [facility] HIGH SEVERITY& THREAT [facility] EMERGENCY 88117 ORIENTAL ORTHODOX 6 6 HEALTH [facility] VISIT HIGH/URGE NT SEVERITY HOSPITAL ORIENTAL [facility]THODOX - 6 6 [facility] 6 [facility] EMERGENCY 02598 [facility] [address] [facility] VISIT [facility]IGH/URGE NT SEVERITY HOSPITAL THREE [facility] OTHER 6 6 [facility] THREE - OTHER 6 6 [facility] THREE - 6 6 [facility] 6 [facility] 34943 [facility] 6 6 [facility] 45 MEDICAL MINUTES [facility] THREE [facility] OTHER 6 6 [facility] THREE - 5 5 [facility] OTHER 5 5 [facility] C[facility]TRAL - 5 5 [facility] [address] [place] 5 5 ORIENTAL ORTHODOX [facility] VISIT HIGH/URGE NT SEVERITY OFFICE 21707 [facility] OUTPATIEN 4 4 [facility] VISIT MEDICAL 25 CLIN MINUTES OFFICE 21438 [facility] OUTPATIEN 4 4 O O T NEW 30 MINUTES OFFICE 43784 [facility] OUTPATIEN 1 1 JAM JAM T VISIT 15 MINUTES OFFICE 80991 [facility] OUT[facility] 1 1 JAM JAM T VISIT 15 MINUTES OFFICE 35029 [facility] OUT[facility] 1 1 JAM JAM T VISIT 15 MINUTES OFFICE 78250 [facility] OUT[facility] 1 1 JAM JAM T NEW 45 MINUTES OFFICE [id number] DIANE CONTRERAS OUTPATIEN 0 0 [facility] D 25 MINUTES OFFICE [id number] MIREYA CHEEMA OUTPATIEN 9 9 [facility] 15 PLL MINUTES OFFICE [id number] MIREYA CHEEMA OUTPATIEN 9 9 [facility] 15 PLL MINUTES [facility] - 9 9 [facility] T OFFICE 37861 MIREYA CHEEMA OUTPATIEN 9 9 [facility] 15 PLL MINUTES OFFICE 47211 MIREYA [facility]EMA OUTPATIEN 9 9 [facility] 15 PLL MINUTES OFFICE [id number] MIREYA CHEEMA OUTPATIEN 9 9 [facility] 15 PLL MINUTES [facility] - 9 9 [facility]OS[facility] T OFFICE 62137 MIREYA CHEEMA OUTPATIEN 9 9 [facility] J T NEW 45 CENTER MINUTES [facility] OFFICE 35389 DHS/CO DIANE OUTPATIEN 9 9 [facility] T NEW 45 CENTRAL CO H D MINUTES BANK ACCT
--- OUTSIDE RECORDS SUMMARY | 2016-10-31 11:57 | External Medical Summary Rpt ---
Author Author [employer], [employer] Organization [employer] Address Unknown Phone Unavailable
--- NOTE | 2016-10-31 12:07 | Emergency Room Report ---
History of Present Illness Time Seen by [id number] Presenting Problem in Triage Pt arrived:Walked Presenting Problem:PT STATES SHE FEELS LIKE SHE HAS A KIDNEYSTONE. DR COLLADO TOLD HER TO GO TO THE ER. HX OF KIDNEY STONE. Onset of symptoms date/time:/ or onset unknown for:MEDICAL HX UNKNOWN Treatment Prior to Arrival: [employer] Provided by: Sepsis Risk Assessment: Temp: 98.2 B/P: 130/82 MAP: 98 Pulse: 106 Resp: 20 Recent fever? N Clinical Suspician of Infection? N Mental Status: 1 - Regular (Normal Baseline) Sepsis Risk:Possible Sepsis Risk Have you (or family members/close friends) recently traveled outside the [place]? N If Yes, where/when: Have you had exposure to infectious disease within the past month? TB? Other? Specify: Source patient, RN notes reviewed, family, RN/MD Exam Limitations no limitations Comment This is a 36-year-old female patient presenting to the emergency room with suprapubic pain, onset over the past 12 hours, worse with ambulation. Patient underwent a hysterectomy, approximately 6-12 months ago. She is not currently sexually active. Patient denies any vaginal discharge or vaginal bleeding. She denies dysuria. She is however constipated, did not have a bowel movement within 4-5 days. Patient has a history of constipation, unclear if she has ever been worked up for such medical problem. ALLERGIES Coded Allergies: No Known Allergies (12/17/15) Home Medications Reported Medications Fluoxetine Hcl (Prozac 20MG Capsule(Generic)) 40 MG PO DAILY OXYCODONE HCL/ACETAMINOPHEN (Percocet 5-325 MG Tablet) 1 TAB PO TID PRN PRN PAIN Diazepam (Valium 5MG) 5 MG PO PRN PRN ANXIETY History Medical History General CAD? No Angina: No [place]: No Hypertension? No Hyperlipidemia? No CHF? No DVT? No PE? No COPD? No Asthma? No Anemia? No GERD? No Gastric ulcers? No GI Bleed? No Hernia? No Thyroid Problems? No Hypothyroidism? No CVA? No Seizures? No Diabetes? No Renal Insuffiency? No End Stage Renal Disease? No UTI? No Stones? No BPH? No GB Disease: No Nephritic Syndrome? No Asplenia? No Hepatitis? No Sickle Cell Disease? No Arthritis? No Migraines? No Cataracts? No Glaucoma? No MRSA? No HIV? No TB? No Anxiety? No Depression? No Cancer? No More? 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 LMP N/A Social History Smoking Hx Smoker: Never Smoker Tobacco: No Alcohol Alcohol: No Review of Systems All Other Systems Reviewed and Negative Gastrointestinal see HPI, abdominal pain, denies diarrhea, denies nausea, denies vomiting Physical Exam Vital Signs Vital Signs Date Time Temp Pulse Resp B/P Pulse O2 O2 Flow FiO2 Ox Delivery Rate 10/31 1430 98.3 85 18 120/76 100 10/31 1330 98.3 99 18 120/84 100 10/31 1240 98.2 98 18 128/90 100 10/31 1233 18 10/31 1125 98.2 106 20 130/82 100 General Appearance normal appearance, WD/WN, moderate distress Neck normal inspection, non-tender, supple, full range of motion Respiratory Status Yes: trachea midline, chest symmetrical, non tender chest. No: respiratory distress. Lung Sounds bilateral: normal breath sounds, lungs clear. 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 No Comment Upon evaluation patient is in stable medical condition, medically stable, somewhat better, clinically improving. Advised patient of results of obtained, need to take laxatives, for immediate relief, as well as Colace/stool softeners in order to prevent this problem from recurring again. Patient advised to follow -up with PCP if not better tomorrow morning. If any new symptoms such as fever, nausea, vomiting, diarrhea, etc. patient advised to return immediately to this, same, emergency room for re-evaluation. Results/Orders Laboratory Tests 10/31/16 1355: Urine Color YELLOW, Urine Appearance CLEAR, Urine pH 6.0, Ur Specific Polaris 1.025, Urine Protein NEGATIVE, Urine Ketones NEGATIVE, Urine Blood 1+ H, Urine Nitrate NEGATIVE, Urine Bilirubin NEGATIVE, Urine Urobilinogen 0.2, Ur Leukocyte Esterase NEGATIVE, Urine WBC OCC, Ur Squamous Epith Cells 10-20, Urine Bacteria 2+, Urine Mucus 1+, Urine Glucose NEGATIVE 10/31/16 1230: Sodium 135 L, Potassium 3.6, Chloride 104, Carbon Dioxide 26, BUN 19 H, Creatinine 0.7, Estimated Creat Clear 130, Estimated GFR (MDRD) 94, Glucose 106, Calcium 9.3, Total Bilirubin 0.3, AST 16, ALT 26, Alkaline Phosphatase 67, Total Protein 7.9, Albumin 3.8, Globulin 4.1 H, Albumin/Globulin Ratio 0.9 L, WBC 7.7, RBC 4.55, Hgb 13.8, Hct 41.1, MCV 90.3, RDW 12.6, Plt Count 244, MPV 6.8 L , Gran % 52.8, Gran # 4.1, Lymphocytes % 38.7, Monocytes % 5.4, Eosinophils % 2.5, Basophils % 0.6, Lymphocytes # 3.0, Monocytes # 0.4, Eosinophils # 0.2, Basophils # 0.0, PUBS MCHC 33.5, MCH 30.3 Orders Procedure Date/time Status DIET-NOTHING BY MOUTH 10/31 D Active CULTURE, URINE 10/[address] ABD/PELVIS REQ 10/31 1133 Complete IV SALINE LOCK 10/31 1133 Active URINALYSIS/COMPLETE 10/31 1133 Complete CBC WITH AUTO DIFF 10/31 1133 Complete CHEM 12 PROFILE 10/31 1133 Complete XRAY/CT/US XRAY/CT/US CT abdomen, pelvis CT interpretation by discussed w/radiologist CT Results please see radiologist's report Departure Departure Time of Disposition 1417 Disposition DC Home or Self Care(routine) Clinical Impression Primary Impression: Constipation Qualifiers: Constipation type: unspecified constipation type Qualified Code: K59.00 - Constipation, unspecified Secondary Impressions: Abdominal pain Qualifiers: Abdominal location: lower abdomen, unspecified Qualified Code: R10.30 - Lower abdominal pain, unspecified Condition STABLE Patient Instructions DI for Acute Abdomen, DI for Constipation Additional Instructions Please follow-up with Dr. Jackson within the next 2 days, take Colace 100mg 2x/ day. Discharge Counseling Counseled pt/family regarding diagnosis, test results, medications/RX, home care, follow up needs Comment Please follow-up with Dr. Jackson within the next 2 days, take Colace 100mg 2x/ day. Prescriptions Current Visit Scripts Docusate Sodium (Colace 100MG CAP) 100 MG PO BID #20 CAP Etodolac 200 MG PO BIDP PRN pain #20 CAP Ondansetron (Zofran 4MG Odt) 4 MG PO Q6HP PRN NAUSEA AND VOMITING #20 ODT ED Critical Care Critical Care No at 120
--- NOTE | 2016-10-31 12:25 | RADIOLOGY REPORT PS360 ---
CT ABD PELVIS W/O CONTRAST COMPARISON: CT scan abdomen pelvis stone protocol 12/17/2015 HISTORY: Pelvic and abdominal pain, nausea and vomiting, history of stones TECHNIQUE: Multiaxial scans obtained from hemidiaphragms the pelvic floor and were performed without IV or oral contrast. Sagittal and coronal reformats were evaluated as well. FINDINGS: Scans of the lower chest show clear lower lung salomon. The liver spleen and pancreas appear normal. There is been a previous cholecystectomy. The stomach is markedly distended with ingested food particles. The adrenal glands are normal, the kidneys are normal in size and there are tiny nonobstructing calculi in both kidneys. The small bowel appears normal. The appendix is normal. There is a moderate amount stool in ascending and transverse and proximal descending and sigmoid colon. There has been a previous hysterectomy. Urinary bladder is normal, there is no free fluid in the pelvis. The lumbar spine and bony pelvis appear normal. There is a small umbilical hernia containing fat only. IMPRESSION: Tiny nonobstructing calculi in each kidney, small umbilical hernia, no other significant abnormality noted other than moderate constipation
[2016-10-31 12:42] LABS: HEMOGLOBIN 13.8 g/dL (12.2-16.2); LYMPH % 38.7 % (10-50.0)
[2016-10-31 14:04] LABS: URINE BILIRUBIN - DIPSTICK NEGATIVE (NEG); URINE BLOOD 1+ (NEG)
[2016-10-31] MEDS ORDERED: COLACE100 MG PO (14:21)
[2016-10-31] MEDS ORDERED: ETODOLAC200 MG PO (14:22)
[2016-10-31] MEDS ORDERED: ZOFRAN ODT4 MG PO (14:22)
[2016-10-31 14:30] VITALS: BP 120/76
== END 2016-10-31 14:30 | disposition home or self-care (01) ==
LOC: ER 11:22
PROVIDERS: Emergency Medicine
DX: K59.00 Constipation, unspecified (principal); R10.30 Lower abdominal pain, unspecified
CPT/HCPCS: J2405

== ENCOUNTER → 2017-03-14 | Outpatient (CLI) | payer BC, MEDICAID ==
[~2017-03-14] MED LIST changes: +COLACE100 MG PO; +ETODOLAC200 MG PO; +ZOFRAN ODT4 MG PO
[2017-03-14 16:20] LABS: HEMOGLOBIN 15.1 g/dL (12.2-16.2); LYMPH % 26.6 % (10-50.0)
[2017-03-14 19:33] LABS: BUN 24 mg/dL (7-18)
[2017-03-14 20:22] LABS: GFR (ESTIMATED) 81 ML/MIN (59-)
== END ==
LOC: LAB 15:51
PROVIDERS: Physician Assistant
DX: F41.9 Anxiety disorder, unspecified (principal)